=== PATIENT | male | born 1930 | race Caucasian/White ===

== ENCOUNTER 2016-12-24 14:58 | Inpatient (IN) | payer OTHER ==
[~2016-12-24] VITALS: Ht 167.6 cm; Wt 80.1 kg
[~2016-12-24 14:58] MED LIST: ACYC200C PO; DIATR MEGLU/DIATRIZOATE SOLN 120ML ONE; DOCU-138 PO; MECL-109 PO; TAMS0.4C31 PO
[2016-12-24] MEDS ORDERED: SODIUM CHLORIDE 0.9% 500 ML IV ONE (15:20)
[2016-12-24 15:51] LABS: HEMATOCRIT. 30.3 % (42.0-52.0); MEAN CORPUSCULAR HEMOGLOBIN 29.9 pg (28.0-32.0); MEAN CORPUSCULAR VOLUME 90.6 fL (80.0-94.0); MEAN PLATELET VOLUME 7.4 fl (7.4-10.4); PLATELET 158 x1000/uL (130-400); RED BLOOD CELL COUNT 3.34 mill/uL (4.7-6.1); RED CELL DISTRIBUTION WIDTH 14.8 % (11.6-14.6)
[2016-12-24 15:54] LABS: CHLORIDE 99 mEq/L (98-107); INDEX HEMOLYSI 1 (1-3); INDEX ICTERIC 1 (1-4); INDEX LIPEMIC 1 (1-3)
[2016-12-24 15:58] LABS: DIFFERENTIAL COMMENT 1; INR 1.2; PARTIAL THROMBOPLASTIN TIME 26.4 sec (24.0-34.0); PROTHROMBIN TIME 12.4 sec
[2016-12-24 16:02] LABS: ALANINE AMINOTRANSFERASE 19 IU/L (13-61); ANION GAP 13; CALCIUM 8.9 mg/dL (8.5-10.1); CARBON DIOXIDE 26 mEq/L (21-32); LIPASE 59 IU/L (73-393); UREA NITROGEN BLOOD 21 mg/dL (7-21); eGFR > 60 mL/min (>60)
[2016-12-24 16:29] LABS: PLATELET ESTIMATE NORMAL
[2016-12-24] MEDS ORDERED: ACETAMINOPHEN 650MG SUPP PR ONE (17:00)
[2016-12-24 17:23] LABS: CREATINE KINASE 172 IU/L (39-308); CREATINE KINASE MB FRACTION 2.7 ng/mL (0.5-3.6); INDEX HEMOLYSI 1 (1-3); NT PRO B-TYPE NATRIURETIC PEP 3673 pg/mL (5-125); TROPONIN I < 0.02 ng/mL (0.00-0.04)
[2016-12-24] MEDS ORDERED: PIPERACILLIN/TAZ 3.375G PREMIX 50 ML IV ONE (17:45)
[2016-12-24 18:04] LABS: CLARITY URINE CLEAR (CLEAR); COLOR URINE YELLOW (YELLOW); GLUCOSE URINE NEGATIVE (NEGATIVE); KETONES URINE NEGATIVE (NEGATIVE); LEUKOCYTE ESTERASE URINE NEGATIVE (NEGATIVE); NITRITE URINE NEGATIVE (NEGATIVE); OCCULT BLOOD URINE NEGATIVE (NEGATIVE); PROTEIN URINE 2+ (NEGATIVE); SPECIFIC GRAVITY URINE 1.023 (1.005-1.030)
[2016-12-24 18:36] LABS: BACTERIA URINE 1+; RBC URINE NONE SEEN /hpf (0-2); SQUAMOUS EPITHELIAL CELL URINE RARE /lpf (RARE/1+); WBC URINE 0-2 /hpf (0-2)
[2016-12-24 20:00] VITALS: BP 110/78
[2016-12-24 20:45] VITALS: BP 110/78
[2016-12-24] MEDS ORDERED: LOVA40TA73 PO (21:10)
[2016-12-24] MEDS ORDERED: LORA10TA7 PO (21:10)
[2016-12-24] MEDS ORDERED: FERR-63 PO (21:10)
[2016-12-24] MEDS ORDERED: ALBU18HF2 IH (21:10)
[2016-12-24] MEDS ORDERED: IPRA12.94 INH (21:10)
[2016-12-24] MEDS ORDERED: IBUP-1510 PO (21:10)
[2016-12-24] MEDS ORDERED: DOCU-138 PO (21:10)
[2016-12-24] MEDS ORDERED: METOPROLOL TARTRATE 50MG TABLET PO NR (22:45)
[2016-12-24] MEDS ORDERED: IPRATROPIUM/ALBUTEROL 0.5-3(2.5)MG/3ML NEB HHN PRN (22:45)
[2016-12-24] MEDS: DEXT 5%/0.9% NACL 1,000 ML IV SCH (23:18)
[2016-12-24 23:48] LABS: BG BASE EXCESS -2.4 mmol/L (-2.0-2.0); BG CARBOXYHEMOGLOBIN 0.3 % (0.5-1.5); BG FRACTION INSPIRED OXYGEN 36; BG HCO3 ACT 19.7 mmol/L (22.0-26.0); BG METHEMOGLOBIN 0.3 % (0.0-1.5); BG OXYHEMOGLOBIN 95.4 % (94.0-97.0); BG PCO2 26.2 mmHg (35.0-45.0); BG PH 7.495 (7.350-7.450); BG PO2 78.6 mmHg (75.0-100.0); BG SAMPLE SITE LEFT RADIAL; BG TOTAL HEMOGLOBIN 10.7 g/dL (12.0-18.0); BG VENT MODE NASAL CANNULA
[2016-12-25] VITALS: BP 107/74
[2016-12-25] MEDS: PIPERACILLIN/TAZ 3.375G PREMIX 50 ML IV SCH ×3 (01:11→17:06)
[2016-12-25 04:00] VITALS: BP 100/62
[2016-12-25 06:02] LABS: HEMATOCRIT. 28.7 % (42.0-52.0); HEMOGLOBIN. 9.3 g/dL (14.0-18.0); MEAN CORPUSCULAR HEMOGLOBIN 29.1 pg (28.0-32.0); MEAN CORPUSCULAR HGB CONC 32.3 g/dL (31.0-37.0); MEAN CORPUSCULAR VOLUME 90.3 fL (80.0-94.0); MEAN PLATELET VOLUME 7.9 fl (7.4-10.4); PLATELET 160 x1000/uL (130-400); RED BLOOD CELL COUNT 3.18 mill/uL (4.7-6.1); RED CELL DISTRIBUTION WIDTH 14.9 % (11.6-14.6); WHITE BLOOD COUNT 24.8 x1000/uL (4.5-11.0)
[2016-12-25 06:12] LABS: DIFFERENTIAL COMMENT 1
[2016-12-25 07:01] LABS: PLATELET ESTIMATE NORMAL
[2016-12-25 07:23] LABS: ALANINE AMINOTRANSFERASE 24 IU/L (13-61); ALBUMIN 2.6 g/dL (3.4-5.0); ANION GAP 13; CALCIUM 8.3 mg/dL (8.5-10.1); CARBON DIOXIDE 26 mEq/L (21-32); CHLORIDE 99 mEq/L (98-107); INDEX HEMOLYSI 1 (1-3); INDEX ICTERIC 1 (1-4); INDEX LIPEMIC 1 (1-3); UREA NITROGEN BLOOD 18 mg/dL (7-21); eGFR > 60 mL/min (>60)
[2016-12-25 08:00] VITALS: BP 97/65
[2016-12-25] MEDS: METOPROLOL TARTRATE 50MG TABLET PO SCH ×2 (09:00→21:00)
[2016-12-25] MEDS: PANTOPRAZOLE SODIUM 40 MG/VIAL IV SCH (09:29)
[2016-12-25 12:00] VITALS: BP 97/63
[2016-12-25] MEDS ORDERED: VANCOMYCIN 1500MG in DEXTROSE 5% WATER 250ML IV NR (15:00)
[2016-12-25] MEDS: DEXT 5%/0.9% NACL 1,000 ML IV SCH (15:29)
[2016-12-25 16:00] VITALS: BP 98/66
[2016-12-25 20:00] VITALS: BP 92/58
[2016-12-26] VITALS (44 sets, daily range): BP systolic 87–157; BP diastolic 55–88
[2016-12-26] MEDS ORDERED: SODIUM CHLORIDE 0.9% 250 ML IV ONE (01:00)
[2016-12-26] MEDS ORDERED: NON FORMULARY PATIENT HOME MED EA XX SCH (01:00)
[2016-12-26] MEDS: PIPERACILLIN/TAZ 3.375G PREMIX 50 ML IV SCH ×3 (02:10→19:22)
[2016-12-26] MEDS ORDERED: NOREPINEPHRINE 8 MG in DEXT 5% WATER 242 ML IV PRN (03:45)
[2016-12-26 07:51] LABS: HEMATOCRIT. 26.5 % (42.0-52.0); HEMOGLOBIN. 8.5 g/dL (14.0-18.0); MEAN CORPUSCULAR HEMOGLOBIN 28.8 pg (28.0-32.0); MEAN CORPUSCULAR HGB CONC 32.3 g/dL (31.0-37.0); MEAN CORPUSCULAR VOLUME 89.1 fL (80.0-94.0); MEAN PLATELET VOLUME 7.4 fl (7.4-10.4); PLATELET 133 x1000/uL (130-400); RED BLOOD CELL COUNT 2.97 mill/uL (4.7-6.1); WHITE BLOOD COUNT 22.1 x1000/uL (4.5-11.0)
[2016-12-26 07:53] LABS: DIFFERENTIAL COMMENT 1
[2016-12-26 07:58] LABS: CHLORIDE 105 mEq/L (98-107); INDEX HEMOLYSI 1 (1-3); INDEX ICTERIC 1 (1-4); INDEX LIPEMIC 1 (1-3)
[2016-12-26 08:03] LABS: ANION GAP 10; CALCIUM 8.1 mg/dL (8.5-10.1); CARBON DIOXIDE 26 mEq/L (21-32); UREA NITROGEN BLOOD 23 mg/dL (7-21); eGFR > 60 mL/min (>60)
[2016-12-26] MEDS: METOPROLOL TARTRATE 50MG TABLET PO SCH ×2 (09:00→21:00)
[2016-12-26 09:01] LABS: PLATELET ESTIMATE NORMAL
[2016-12-26] MEDS: PANTOPRAZOLE SODIUM 40 MG/VIAL IV SCH (09:57)
[2016-12-26] MEDS: VANCOMYCIN 1 G PREMIX 200 ML IV SCH (09:58)
[2016-12-26] MEDS: DEXT 5%/0.9% NACL 1,000 ML IV SCH (10:31)
[2016-12-26] MEDS ORDERED: POTASSIUM CHLORIDE 20MEQ TABLET SR PO NR (12:15)
[2016-12-26] MEDS: ACETAMINOPHEN 325MG TABLET PO PRN (17:32)
[2016-12-26] MEDS ORDERED: DIPHENHYDRAMINE 50MG CAPSULE PO PRN (22:15)
[2016-12-27] VITALS (44 sets, daily range): BP systolic 90–140; BP diastolic 62–93
[2016-12-27] MEDS: PIPERACILLIN/TAZ 3.375G PREMIX 50 ML IV SCH ×3 (01:54→17:28)
[2016-12-27] MEDS: VANCOMYCIN 1 G PREMIX 200 ML IV SCH (03:50)
[2016-12-27 05:03] LABS: HEMATOCRIT. 25.6 % (42.0-52.0); HEMOGLOBIN. 8.6 g/dL (14.0-18.0); MEAN CORPUSCULAR HGB CONC 33.4 g/dL (31.0-37.0); MEAN CORPUSCULAR VOLUME 89.6 fL (80.0-94.0); MEAN PLATELET VOLUME 7.9 fl (7.4-10.4); PLATELET 133 x1000/uL (130-400); RED BLOOD CELL COUNT 2.86 mill/uL (4.7-6.1); RED CELL DISTRIBUTION WIDTH 15.1 % (11.6-14.6); WHITE BLOOD COUNT 20.5 x1000/uL (4.5-11.0)
[2016-12-27 05:06] LABS: DIFFERENTIAL COMMENT 1
[2016-12-27 05:12] LABS: ALANINE AMINOTRANSFERASE 31 IU/L (13-61); ALBUMIN 2.2 g/dL (3.4-5.0); ANION GAP 13; CALCIUM 8.1 mg/dL (8.5-10.1); CARBON DIOXIDE 25 mEq/L (21-32); CHLORIDE 104 mEq/L (98-107); INDEX HEMOLYSI 1 (1-3); INDEX ICTERIC 1 (1-4); INDEX LIPEMIC 1 (1-3); MAGNESIUM 1.7 mg/dL (1.8-2.4); UREA NITROGEN BLOOD 15 mg/dL (7-21); eGFR > 60 mL/min (>60)
[2016-12-27 07:41] LABS: PLATELET ESTIMATE NORMAL
[2016-12-27] MEDS: METOPROLOL TARTRATE 50MG TABLET PO SCH ×2 (08:07→21:00)
[2016-12-27] MEDS: PANTOPRAZOLE SODIUM 40 MG/VIAL IV SCH (08:07)
[2016-12-27] MEDS: DEXT 5%/0.9% NACL 1,000 ML IV SCH ×2 (08:18→17:28)
[2016-12-27] MEDS ORDERED: LORAZEPAM 2MG/ML CPJ IM PRN (13:30)
[2016-12-27] MEDS ORDERED: POTASSIUM CHLORIDE 20 MEQ/PACKET PO NR (13:37)
[2016-12-27] MEDS ORDERED: DIPHENHYDRAMINE 50MG/ML VIAL IV PRN (13:45)
[2016-12-27] MEDS: FUROSEMIDE 40MG/4ML VIAL IVP SCH (14:09)
[2016-12-27] MEDS ORDERED: IPRATROPIUM/ALBUTEROL 0.5-3(2.5)MG/3ML NEB HHN PRN (14:15)
[2016-12-27] MEDS: IPRATROPIUM/ALBUTEROL 0.5-3(2.5)MG/3ML NEB HHN SCH ×2 (15:27→20:59)
[2016-12-28] VITALS (32 sets, daily range): BP systolic 93–128; BP diastolic 61–86
[2016-12-28] MEDS: IPRATROPIUM/ALBUTEROL 0.5-3(2.5)MG/3ML NEB HHN SCH ×6 (00:40→23:57)
[2016-12-28 04:33] LABS: HEMATOCRIT. 26.4 % (42.0-52.0); HEMOGLOBIN. 8.9 g/dL (14.0-18.0); MEAN CORPUSCULAR HEMOGLOBIN 30.2 pg (28.0-32.0); MEAN CORPUSCULAR HGB CONC 33.7 g/dL (31.0-37.0); MEAN CORPUSCULAR VOLUME 89.5 fL (80.0-94.0); PLATELET 166 x1000/uL (130-400); RED BLOOD CELL COUNT 2.94 mill/uL (4.7-6.1); RED CELL DISTRIBUTION WIDTH 14.8 % (11.6-14.6); WHITE BLOOD COUNT 17.3 x1000/uL (4.5-11.0)
[2016-12-28 04:47] LABS: DIFFERENTIAL COMMENT 1
[2016-12-28 04:49] LABS: ALANINE AMINOTRANSFERASE 68 IU/L (13-61); ALBUMIN 2.1 g/dL (3.4-5.0); ANION GAP 12; CARBON DIOXIDE 28 mEq/L (21-32); CHLORIDE 103 mEq/L (98-107); INDEX HEMOLYSI 1 (1-3); INDEX ICTERIC 1 (1-4); INDEX LIPEMIC 1 (1-3); UREA NITROGEN BLOOD 10 mg/dL (7-21); eGFR > 60 mL/min (>60)
[2016-12-28] MEDS: PANTOPRAZOLE SODIUM 40 MG/VIAL IV SCH (08:36)
[2016-12-28] MEDS: FUROSEMIDE 40MG/4ML VIAL IVP SCH (08:36)
[2016-12-28] MEDS: METOPROLOL TARTRATE 50MG TABLET PO SCH ×2 (08:37→20:59)
[2016-12-28] MEDS: PIPERACILLIN/TAZ 3.375G PREMIX 50 ML IV SCH ×2 (09:16→18:10)
[2016-12-28 10:47] LABS: PLATELET ESTIMATE NORMAL
[2016-12-28] MEDS ORDERED: POTASSIUM CHLORIDE 20MEQ TABLET SR PO NR (12:00)
[2016-12-28] MEDS ORDERED: POTASSIUM CHLORIDE INJ 40 MEQ in DEXT 5% WATER 250 ML IV SCH (13:00)
[2016-12-28] MEDS ORDERED: POTASSIUM CHLORIDE 20 MEQ/PACKET PO NR (13:49)
[2016-12-28] MEDS ORDERED: LORAZEPAM 2MG/ML CPJ IV PRN (14:00)
[2016-12-28] MEDS: VANCOMYCIN 1 G PREMIX 200 ML IV SCH (14:17)
[2016-12-28] MEDS ORDERED: VANCOMYCIN 1 G PREMIX 200 ML IV SCH (16:00)
[2016-12-28] MEDS: DEXT 5%/0.9% NACL 1,000 ML IV SCH (17:46)
[2016-12-28] MEDS: MICONAZOLE NITRATE 2% OINT 71GM TOP SCH (20:59)
[2016-12-29] VITALS: BP 109/77
[2016-12-29] MEDS: PIPERACILLIN/TAZ 3.375G PREMIX 50 ML IV SCH ×4 (01:13→23:20)
[2016-12-29] MEDS: IPRATROPIUM/ALBUTEROL 0.5-3(2.5)MG/3ML NEB HHN SCH ×5 (03:33→21:02)
[2016-12-29 04:00] VITALS: BP 105/73
[2016-12-29 05:12] LABS: HEMATOCRIT. 27.1 % (42.0-52.0); HEMOGLOBIN. 8.8 g/dL (14.0-18.0); MEAN CORPUSCULAR HGB CONC 32.5 g/dL (31.0-37.0); MEAN CORPUSCULAR VOLUME 89.2 fL (80.0-94.0); MEAN PLATELET VOLUME 7.7 fl (7.4-10.4); PLATELET 216 x1000/uL (130-400); RED BLOOD CELL COUNT 3.03 mill/uL (4.7-6.1); RED CELL DISTRIBUTION WIDTH 15.1 % (11.6-14.6); WHITE BLOOD COUNT 19.5 x1000/uL (4.5-11.0)
[2016-12-29 05:38] LABS: ALANINE AMINOTRANSFERASE 58 IU/L (13-61); ALBUMIN 2.2 g/dL (3.4-5.0); ANION GAP 14; CALCIUM 8.3 mg/dL (8.5-10.1); CARBON DIOXIDE 29 mEq/L (21-32); CHLORIDE 100 mEq/L (98-107); INDEX HEMOLYSI 1 (1-3); INDEX ICTERIC 1 (1-4); INDEX LIPEMIC 1 (1-3); UREA NITROGEN BLOOD 9 mg/dL (7-21); eGFR > 60 mL/min (>60)
[2016-12-29 06:30] LABS: DIFFERENTIAL COMMENT 1
[2016-12-29 08:00] VITALS: BP 111/80
[2016-12-29] MEDS: FUROSEMIDE 40MG/4ML VIAL IVP SCH (08:28)
[2016-12-29] MEDS: PANTOPRAZOLE SODIUM 40 MG/VIAL IV SCH (08:28)
[2016-12-29] MEDS: VANCOMYCIN 1 G PREMIX 200 ML IV SCH (08:28)
[2016-12-29] MEDS: METOPROLOL TARTRATE 50MG TABLET PO SCH ×2 (08:32→23:20)
[2016-12-29] MEDS: MICONAZOLE NITRATE 2% OINT 71GM TOP SCH ×2 (08:39→23:21)
[2016-12-29] MEDS: ACETAMINOPHEN 325MG TABLET PO PRN (10:48)
[2016-12-29 12:00] VITALS: BP_SYST 100; BP_SYST 110; BP_DIAS 75
[2016-12-29 14:29] LABS: PLATELET ESTIMATE NORMAL
[2016-12-29 15:51] VITALS: BP 103/63
[2016-12-29 20:00] VITALS: BP 115/73
[2016-12-29] MEDS: DEXT 5%/0.9% NACL 1,000 ML IV SCH (23:20)
[2016-12-30] VITALS: BP 98/63
[2016-12-30] MEDS: IPRATROPIUM/ALBUTEROL 0.5-3(2.5)MG/3ML NEB HHN SCH ×6 (00:22→20:00)
[2016-12-30] MEDS: VANCOMYCIN 1 G PREMIX 200 ML IV SCH ×2 (03:00→21:29)
[2016-12-30 04:00] VITALS: BP 115/78
[2016-12-30 05:35] LABS: HEMATOCRIT. 27.1 % (42.0-52.0); HEMOGLOBIN. 8.9 g/dL (14.0-18.0); MEAN CORPUSCULAR HEMOGLOBIN 29.3 pg (28.0-32.0); MEAN CORPUSCULAR HGB CONC 32.9 g/dL (31.0-37.0); MEAN CORPUSCULAR VOLUME 89.2 fL (80.0-94.0); MEAN PLATELET VOLUME 7.6 fl (7.4-10.4); PLATELET 249 x1000/uL (130-400); RED BLOOD CELL COUNT 3.04 mill/uL (4.7-6.1); RED CELL DISTRIBUTION WIDTH 15.1 % (11.6-14.6); WHITE BLOOD COUNT 16.3 x1000/uL (4.5-11.0)
[2016-12-30 05:54] LABS: ANION GAP 13; CALCIUM 8.5 mg/dL (8.5-10.1); CARBON DIOXIDE 31 mEq/L (21-32); CHLORIDE 98 mEq/L (98-107); INDEX HEMOLYSI 1 (1-3); INDEX ICTERIC 1 (1-4); INDEX LIPEMIC 1 (1-3); UREA NITROGEN BLOOD 11 mg/dL (7-21); eGFR > 60 mL/min (>60)
[2016-12-30 07:11] LABS: DIFFERENTIAL COMMENT 1
[2016-12-30 08:00] VITALS: BP 117/81
[2016-12-30] MEDS: FAMOTIDINE 20MG/2ML VIAL IV SCH ×2 (08:54→21:29)
[2016-12-30] MEDS: METOPROLOL TARTRATE 50MG TABLET PO SCH ×2 (08:54→21:29)
[2016-12-30] MEDS: FUROSEMIDE 40MG/4ML VIAL IVP SCH (08:54)
[2016-12-30] MEDS: MICONAZOLE NITRATE 2% OINT 71GM TOP SCH ×2 (08:57→21:34)
[2016-12-30] MEDS: PIPERACILLIN/TAZ 3.375G PREMIX 50 ML IV SCH ×2 (09:03→17:11)
[2016-12-30 12:00] VITALS: BP 108/77
[2016-12-30 16:00] VITALS: BP 99/67
[2016-12-30 16:54] LABS: ANISOCYTOSIS 1+; PLATELET ESTIMATE NORMAL
[2016-12-30] MEDS: DEXT 5%/0.9% NACL 1,000 ML IV SCH (17:10)
[2016-12-30 20:00] VITALS: BP 103/79
[2016-12-31] VITALS (7 sets, daily range): BP systolic 98–118; BP diastolic 60–84
[2016-12-31] MEDS: ACETAMINOPHEN 325MG TABLET PO PRN (02:08)
[2016-12-31] MEDS: PIPERACILLIN/TAZ 3.375G PREMIX 50 ML IV SCH ×2 (02:08→09:05)
[2016-12-31] MEDS: IPRATROPIUM/ALBUTEROL 0.5-3(2.5)MG/3ML NEB HHN SCH ×6 (04:00→21:39)
[2016-12-31] MEDS: METOPROLOL TARTRATE 50MG TABLET PO SCH ×2 (09:00→20:31)
[2016-12-31] MEDS: FUROSEMIDE 40MG/4ML VIAL IVP SCH (09:04)
[2016-12-31] MEDS: FAMOTIDINE 20MG/2ML VIAL IV SCH ×2 (09:04→20:31)
[2016-12-31] MEDS: MICONAZOLE NITRATE 2% OINT 71GM TOP SCH ×2 (09:04→20:32)
[2016-12-31 09:41] LABS: HEMATOCRIT. 29.8 % (42.0-52.0); HEMOGLOBIN. 9.8 g/dL (14.0-18.0); MEAN CORPUSCULAR HEMOGLOBIN 29.3 pg (28.0-32.0); MEAN CORPUSCULAR HGB CONC 32.8 g/dL (31.0-37.0); MEAN CORPUSCULAR VOLUME 89.2 fL (80.0-94.0); MEAN PLATELET VOLUME 7.4 fl (7.4-10.4); PLATELET 323 x1000/uL (130-400); RED BLOOD CELL COUNT 3.34 mill/uL (4.7-6.1)
[2016-12-31 09:42] LABS: DIFFERENTIAL COMMENT 1
[2016-12-31 10:07] LABS: ANION GAP 12; CALCIUM 8.6 mg/dL (8.5-10.1); CARBON DIOXIDE 32 mEq/L (21-32); CHLORIDE 95 mEq/L (98-107); INDEX HEMOLYSI 1 (1-3); INDEX ICTERIC 1 (1-4); INDEX LIPEMIC 1 (1-3); UREA NITROGEN BLOOD 12 mg/dL (7-21); eGFR > 60 mL/min (>60)
[2016-12-31 10:34] LABS: ANISOCYTOSIS 1+; PLATELET ESTIMATE NORMAL
[2016-12-31] MEDS: METRONIDAZOLE 500MG TABLET PO SCH ×2 (13:38→21:37)
[2016-12-31 15:03] LABS: HEMATOCRIT. 31.4 % (42.0-52.0); HEMOGLOBIN. 10.3 g/dL (14.0-18.0); MEAN CORPUSCULAR HEMOGLOBIN 29.2 pg (28.0-32.0); MEAN CORPUSCULAR HGB CONC 32.8 g/dL (31.0-37.0); MEAN CORPUSCULAR VOLUME 88.9 fL (80.0-94.0); MEAN PLATELET VOLUME 7.3 fl (7.4-10.4); PLATELET 312 x1000/uL (130-400); RED BLOOD CELL COUNT 3.53 mill/uL (4.7-6.1); RED CELL DISTRIBUTION WIDTH 14.8 % (11.6-14.6)
[2016-12-31] MEDS: CEFEPIME 2,000 MG in DEXT 5% WATER 100 ML IV SCH (15:11)
[2016-12-31 15:19] LABS: DIFFERENTIAL COMMENT 1
[2016-12-31] MEDS: DEXT 5%/0.9% NACL 1,000 ML IV SCH (17:30)
[2016-12-31 17:41] LABS: PLATELET ESTIMATE NORMAL
[2016-12-31 17:43] LABS: ANISOCYTOSIS 1+
[2016-12-31 17:44] LABS: GIANT PLATELETS FEW
[2016-12-31 17:45] LABS: HYPOCHROMASIA 1+
[2017-01-01] VITALS: BP 104/76
[2017-01-01] MEDS: IPRATROPIUM/ALBUTEROL 0.5-3(2.5)MG/3ML NEB HHN SCH ×3 (00:51→09:33)
[2017-01-01] MEDS: CEFEPIME 2,000 MG in DEXT 5% WATER 100 ML IV SCH (02:53)
[2017-01-01 04:00] VITALS: BP 115/73
[2017-01-01] MEDS: METRONIDAZOLE 500MG TABLET PO SCH ×3 (05:43→15:01)
[2017-01-01 05:59] LABS: CHLORIDE 95 mEq/L (98-107); INDEX HEMOLYSI 1 (1-3); INDEX ICTERIC 1 (1-4); INDEX LIPEMIC 1 (1-3)
[2017-01-01 06:15] LABS: ANION GAP 17; CALCIUM 8.5 mg/dL (8.5-10.1); CARBON DIOXIDE 28 mEq/L (21-32); UREA NITROGEN BLOOD 14 mg/dL (7-21); eGFR > 60 mL/min (>60)
[2017-01-01 07:33] LABS: HEMATOCRIT. 29.6 % (42.0-52.0); HEMOGLOBIN. 9.8 g/dL (14.0-18.0); MEAN CORPUSCULAR HEMOGLOBIN 29.3 pg (28.0-32.0); MEAN CORPUSCULAR HGB CONC 33.2 g/dL (31.0-37.0); MEAN CORPUSCULAR VOLUME 88.2 fL (80.0-94.0); MEAN PLATELET VOLUME 7.4 fl (7.4-10.4); PLATELET 331 x1000/uL (130-400); RED BLOOD CELL COUNT 3.35 mill/uL (4.7-6.1); RED CELL DISTRIBUTION WIDTH 14.9 % (11.6-14.6); WHITE BLOOD COUNT 20.6 x1000/uL (4.5-11.0)
[2017-01-01 08:00] VITALS: BP 101/66
[2017-01-01 08:21] LABS: DIFFERENTIAL COMMENT 1
[2017-01-01] MEDS: METOPROLOL TARTRATE 50MG TABLET PO SCH (09:00)
[2017-01-01] MEDS: FAMOTIDINE 20MG/2ML VIAL IV SCH (09:43)
[2017-01-01] MEDS: MICONAZOLE NITRATE 2% OINT 71GM TOP SCH (09:43)
[2017-01-01] MEDS ORDERED: POTASSIUM CHLORIDE 20MEQ TABLET SR PO SCH (11:00)
[2017-01-01] MEDS: FUROSEMIDE 40MG/4ML VIAL IVP SCH (11:04)
[2017-01-01 12:00] VITALS: BP 127/66
[2017-01-01] MEDS ORDERED: POTASSIUM CHLORIDE INJ 40 MEQ in DEXT 5% WATER 250 ML IV SCH (12:00)
[2017-01-01 16:00] VITALS: BP 114/81
[2017-01-01 16:23] LABS: PLATELET ESTIMATE NORMAL
== END 2016-12-31 16:30 | DRG 871 ==
LOC: ER 14:59 → OBSVTOIN 18:00 → INTOOBSV 18:00 → 5WST 18:00 → MICUSO 12-26 02:50 → 7WST 12-28 21:55
PROVIDERS: ADMIT Internal Medicine; ATTEND Internal Medicine
PROC: 02HV33Z Insertion of Infusion Device into Superior Vena Cava, Percutaneous Approach (ICD-10-PCS; principal; 2016-12-31)
PROC: B548ZZA Ultrasonography of Superior Vena Cava, Guidance (ICD-10-PCS; 2016-12-31)
DX: A41.9 Sepsis, unspecified organism (principal); I50.43 Acute on chronic combined systolic (congestive) and diastolic (congestive) heart failure; J18.9 Pneumonia, unspecified organism; K61.0 Anal abscess; L03.317 Cellulitis of buttock; I11.0 Hypertensive heart disease with heart failure; I25.10 Atherosclerotic heart disease of native coronary artery without angina pectoris; E78.00 Pure hypercholesterolemia, unspecified; D64.9 Anemia, unspecified; E78.5 Hyperlipidemia, unspecified; K62.89 Other specified diseases of anus and rectum; M79.3 Panniculitis, unspecified; E87.6 Hypokalemia; F03.90 Unspecified dementia, unspecified severity, without behavioral disturbance, psychotic disturbance, mood disturbance, and anxiety; Z87.891 Personal history of nicotine dependence; Z95.2 Presence of prosthetic heart valve; Z88.6 Allergy status to analgesic agent; Z79.899 Other long term (current) drug therapy
CPT/HCPCS: 36415; 36569; 36600; 71010; 72192; 73700; 74176; 76937; 80048; 80053; 80202; 81001; 82270; 82375; 82550; 82553; 82805; 83605; 83690; 83735; 83880; 84145; 84443; 84484; 85025; 85610; 85730; 87040; 87086; 87493; 93005; 93306; 93970; 94640; 94664; 96361; 96365; 97163; 99291; A6261; C1725; C9113; J0692; J1940; J2060; J2543; J3370; J3480; J3490; J7040; J7042; J7050; J7060; J7620; Q0163; Q9963

== ENCOUNTER 2016-12-31 18:00 | Inpatient (IN) | payer OTHER ==
[~2016-12-31] VITALS: Ht 167.6 cm; Wt 76.7 kg
[~2016-12-31 18:00] MED LIST changes: -ACYC200C PO; +ALBU18HF2 IH; -DIATR MEGLU/DIATRIZOATE SOLN 120ML ONE; +FERR-63 PO; +IBUP-1510 PO; +IPRA12.94 INH; +LORA10TA7 PO; +LOVA40TA73 PO; -MECL-109 PO; -TAMS0.4C31 PO
[2017-01-01] VITALS: BP 117/75
[2017-01-01 16:00] VITALS: BP 141/81
[2017-01-01] MEDS ORDERED: DIPHENHYDRAMINE 50MG/ML VIAL IV PRN (16:45)
[2017-01-01] MEDS ORDERED: LORAZEPAM 2MG/ML CPJ IV PRN (16:45)
[2017-01-01] MEDS ORDERED: PIPERACILLIN/TAZ 3.375G PREMIX 50 ML IV SCH (16:45)
[2017-01-01] MEDS ORDERED: ACETAMINOPHEN 325MG TABLET PO PRN (16:45)
[2017-01-01 19:40] VITALS: BP 141/81
[2017-01-01 20:00] VITALS: BP 137/94
[2017-01-01 20:17] LABS: HEMOGLOBIN. 10.1 g/dL (14.0-18.0); MEAN CORPUSCULAR HEMOGLOBIN 29.2 pg (28.0-32.0); MEAN CORPUSCULAR HGB CONC 32.6 g/dL (31.0-37.0); MEAN CORPUSCULAR VOLUME 89.8 fL (80.0-94.0); MEAN PLATELET VOLUME 7.2 fl (7.4-10.4); PLATELET 324 x1000/uL (130-400); RED BLOOD CELL COUNT 3.45 mill/uL (4.7-6.1); WHITE BLOOD COUNT 20.9 x1000/uL (4.5-11.0)
[2017-01-01 20:19] LABS: DIFFERENTIAL COMMENT 1
[2017-01-01 20:22] LABS: CHLORIDE 97 mEq/L (98-107); INDEX HEMOLYSI 2 (1-3); INDEX ICTERIC 1 (1-4); INDEX LIPEMIC 1 (1-3)
[2017-01-01 20:27] LABS: ANION GAP 13; CALCIUM 8.9 mg/dL (8.5-10.1); CARBON DIOXIDE 31 mEq/L (21-32); UREA NITROGEN BLOOD 15 mg/dL (7-21); eGFR > 60 mL/min (>60)
[2017-01-01 20:37] LABS: PLATELET ESTIMATE NORMAL
[2017-01-01] MEDS ORDERED: DIPHENHYDRAMINE 50MG CAPSULE PO PRN (21:00)
[2017-01-01] MEDS: CEFEPIME 2,000 MG in DEXT 5% WATER 100 ML IV SCH (21:26)
[2017-01-01] MEDS: FAMOTIDINE 20MG/2ML VIAL IV SCH (21:26)
[2017-01-01] MEDS: DEXT 5%/0.9% NACL 1,000 ML IV SCH (21:26)
[2017-01-01] MEDS: METOPROLOL TARTRATE 50MG TABLET PO SCH (21:27)
[2017-01-01] MEDS: METRONIDAZOLE 500MG TABLET PO SCH (21:27)
[2017-01-01] MEDS: MICONAZOLE NITRATE 2% OINT 71GM TOP SCH (21:28)
[2017-01-01] MEDS ORDERED: METRONIDAZOLE 50MG/ML 1ML ORAL SYR(NEO) PO SCH (22:00)
[2017-01-01] MEDS ORDERED: VANCOMYCIN 1500MG in DEXTROSE 5% WATER 250ML IV NR (22:30)
[2017-01-02] MEDS: IPRATROPIUM/ALBUTEROL 0.5-3(2.5)MG/3ML NEB HHN SCH ×7 (00:14→23:43)
[2017-01-02 04:00] VITALS: BP 133/75
[2017-01-02] MEDS: METRONIDAZOLE 500MG TABLET PO SCH ×4 (06:45→20:57)
[2017-01-02 06:50] LABS: HEMATOCRIT 30.9 % (42.0-52.0); HEMOGLOBIN 10.2 g/dL (14.0-18.0); MEAN CORPUSCULAR HEMOGLOBIN 29.2 pg (28.0-32.0); MEAN CORPUSCULAR HGB CONC 32.9 g/dL (31.0-37.0); MEAN CORPUSCULAR VOLUME 88.9 fL (80.0-94.0); PLATELET 348 x1000/uL (130-400); RED BLOOD CELL COUNT 3.47 mill/uL (4.7-6.1); RED CELL DISTRIBUTION WIDTH 15.3 % (11.6-14.6); WHITE BLOOD COUNT 21.2 x1000/uL (4.5-11.0)
[2017-01-02 07:24] LABS: ANION GAP 13; CARBON DIOXIDE 30 mEq/L (21-32); CHLORIDE 97 mEq/L (98-107); INDEX HEMOLYSI 1 (1-3); INDEX ICTERIC 1 (1-4); INDEX LIPEMIC 1 (1-3); MAGNESIUM 1.8 mg/dL (1.8-2.4); PHOSPHORUS 2.2 mg/dL (2.5-4.9); UREA NITROGEN BLOOD 15 mg/dL (7-21); eGFR > 60 mL/min (>60)
[2017-01-02 08:00] VITALS: BP 131/67
[2017-01-02] MEDS: MICONAZOLE NITRATE 2% OINT 71GM TOP SCH ×2 (09:00→20:58)
[2017-01-02] MEDS: CEFEPIME 2,000 MG in DEXT 5% WATER 100 ML IV SCH ×2 (09:51→20:57)
[2017-01-02] MEDS: PANTOPRAZOLE SODIUM 40 MG/VIAL IV SCH (09:51)
[2017-01-02] MEDS: FUROSEMIDE 40MG/4ML VIAL IVP SCH (09:51)
[2017-01-02] MEDS: FAMOTIDINE 20MG/2ML VIAL IV SCH ×2 (09:51→20:56)
[2017-01-02] MEDS: METOPROLOL TARTRATE 50MG TABLET PO SCH ×2 (09:52→20:57)
[2017-01-02 12:00] VITALS: BP 124/63
[2017-01-02 16:00] VITALS: BP 110/58
[2017-01-02] MEDS ORDERED: VANCOMYCIN 1 G PREMIX 200 ML IV SCH (16:00)
[2017-01-02] MEDS: VANCOMYCIN 1250MG in DEXTROSE 5% WATER 250ML IV SCH (17:49)
[2017-01-02] MEDS: ENOXAPARIN 40MG/0.4ML SYR SUBCUT SCH (17:55)
[2017-01-02 20:00] VITALS: BP 108/64
[2017-01-02] MEDS: DEXT 5%/0.9% NACL 1,000 ML IV SCH (20:58)
[2017-01-02] MEDS ORDERED: MUPIROCIN 2% OINT 22GM TOP SCH (22:00)
[2017-01-03] VITALS: BP 123/82
[2017-01-03 04:00] VITALS: BP 129/79
[2017-01-03] MEDS: IPRATROPIUM/ALBUTEROL 0.5-3(2.5)MG/3ML NEB HHN SCH ×5 (04:15→21:08)
[2017-01-03] MEDS: METRONIDAZOLE 500MG TABLET PO SCH ×3 (06:26→21:15)
[2017-01-03 07:07] LABS: HEMATOCRIT. 28.1 % (42.0-52.0); HEMOGLOBIN. 9.4 g/dL (14.0-18.0); MEAN CORPUSCULAR HEMOGLOBIN 29.4 pg (28.0-32.0); MEAN CORPUSCULAR HGB CONC 33.6 g/dL (31.0-37.0); MEAN CORPUSCULAR VOLUME 87.5 fL (80.0-94.0); MEAN PLATELET VOLUME 7.5 fl (7.4-10.4); PLATELET 346 x1000/uL (130-400); RED BLOOD CELL COUNT 3.21 mill/uL (4.7-6.1); RED CELL DISTRIBUTION WIDTH 15.1 % (11.6-14.6); WHITE BLOOD COUNT 17.1 x1000/uL (4.5-11.0)
[2017-01-03 07:11] LABS: DIFFERENTIAL COMMENT 1
[2017-01-03 07:35] LABS: ANION GAP 14; CALCIUM 8.8 mg/dL (8.5-10.1); CARBON DIOXIDE 28 mEq/L (21-32); CHLORIDE 98 mEq/L (98-107); INDEX HEMOLYSI 1 (1-3); INDEX ICTERIC 1 (1-4); INDEX LIPEMIC 1 (1-3); MAGNESIUM 1.7 mg/dL (1.8-2.4); PHOSPHORUS 2.7 mg/dL (2.5-4.9); UREA NITROGEN BLOOD 15 mg/dL (7-21)
[2017-01-03 07:36] LABS: eGFR > 60 mL/min (>60)
[2017-01-03 08:00] VITALS: BP 127/77
[2017-01-03] MEDS: METOPROLOL TARTRATE 50MG TABLET PO SCH ×2 (08:38→21:15)
[2017-01-03] MEDS: FAMOTIDINE 20MG/2ML VIAL IV SCH ×2 (08:38→21:14)
[2017-01-03] MEDS: CEFEPIME 2,000 MG in DEXT 5% WATER 100 ML IV SCH ×2 (08:38→21:19)
[2017-01-03] MEDS: PANTOPRAZOLE SODIUM 40 MG/VIAL IV SCH (08:38)
[2017-01-03] MEDS: FUROSEMIDE 40MG/4ML VIAL IVP SCH (08:38)
[2017-01-03] MEDS: MICONAZOLE NITRATE 2% OINT 71GM TOP SCH ×2 (08:46→21:15)
[2017-01-03 12:00] VITALS: BP 104/62
[2017-01-03] MEDS ORDERED: POTASSIUM CHLORIDE 20MEQ TABLET SR PO NR (12:15)
[2017-01-03] MEDS: VANCOMYCIN 1250MG in DEXTROSE 5% WATER 250ML IV SCH (12:37)
[2017-01-03 14:50] LABS: PLATELET ESTIMATE NORMAL
[2017-01-03 16:00] VITALS: BP 114/68
[2017-01-03] MEDS: ENOXAPARIN 40MG/0.4ML SYR SUBCUT SCH (16:57)
[2017-01-03 20:00] VITALS: BP 113/68
[2017-01-03] MEDS: DEXT 5%/0.9% NACL 1,000 ML IV SCH (21:19)
[2017-01-04] VITALS: BP 123/88
[2017-01-04] MEDS: IPRATROPIUM/ALBUTEROL 0.5-3(2.5)MG/3ML NEB HHN SCH ×6 (00:39→20:24)
[2017-01-04 04:00] VITALS: BP 124/68
[2017-01-04 05:34] LABS: ANION GAP 14; CALCIUM 9.2 mg/dL (8.5-10.1); CARBON DIOXIDE 28 mEq/L (21-32); CHLORIDE 97 mEq/L (98-107); INDEX HEMOLYSI 1 (1-3); INDEX ICTERIC 1 (1-4); INDEX LIPEMIC 1 (1-3); MAGNESIUM 1.8 mg/dL (1.8-2.4); PHOSPHORUS 2.7 mg/dL (2.5-4.9); UREA NITROGEN BLOOD 17 mg/dL (7-21); VANCOMYCIN TROUGH 23.4 ug/mL (5.0-10.0); eGFR > 60 mL/min (>60)
[2017-01-04] MEDS: METRONIDAZOLE 500MG TABLET PO SCH ×3 (05:47→20:44)
[2017-01-04] MEDS ORDERED: LIDOCAINE HCL 1% 20ML VIAL (Pyxis) INJ INFIL NR (06:00)
[2017-01-04 06:11] LABS: BASOPHILS % 0.7 % (0.0-2.0); EOSINOPHILS % 0.8 % (0.0-5.0); HEMATOCRIT. 33.3 % (42.0-52.0); LYMPHOCYTES % 7.6 % (20.0-50.0); MEAN CORPUSCULAR HEMOGLOBIN 29.1 pg (28.0-32.0); MEAN CORPUSCULAR VOLUME 88.4 fL (80.0-94.0); MEAN PLATELET VOLUME 7.5 fl (7.4-10.4); MONOCYTES % 6.3 % (2.0-8.0); NEUTROPHILS % 84.6 % (40.0-76.0); PLATELET 377 x1000/uL (130-400); RED BLOOD CELL COUNT 3.77 mill/uL (4.7-6.1); RED CELL DISTRIBUTION WIDTH 14.7 % (11.6-14.6); WHITE BLOOD COUNT 15.8 x1000/uL (4.5-11.0)
[2017-01-04 08:00] VITALS: BP 108/71
[2017-01-04] MEDS: METOPROLOL TARTRATE 50MG TABLET PO SCH ×2 (09:00→20:38)
[2017-01-04] MEDS: CEFEPIME 2,000 MG in DEXT 5% WATER 100 ML IV SCH ×2 (09:18→20:41)
[2017-01-04] MEDS: FAMOTIDINE 20MG/2ML VIAL IV SCH ×2 (09:20→20:38)
[2017-01-04] MEDS: FUROSEMIDE 40MG/4ML VIAL IVP SCH (09:20)
[2017-01-04] MEDS: MICONAZOLE NITRATE 2% OINT 71GM TOP SCH ×2 (09:21→20:39)
[2017-01-04 12:00] VITALS: BP 91/66
[2017-01-04] MEDS: VANCOMYCIN 1250MG in DEXTROSE 5% WATER 250ML IV SCH (14:19)
[2017-01-04] MEDS: MUPIROCIN 2% OINT 22GM TOP SCH ×2 (15:18→20:39)
[2017-01-04 16:00] VITALS: BP 107/72
[2017-01-04] MEDS: ENOXAPARIN 40MG/0.4ML SYR SUBCUT SCH (16:17)
[2017-01-04] MEDS: DEXT 5%/0.9% NACL 1,000 ML IV SCH (19:00)
[2017-01-04 20:00] VITALS: BP 112/72
[2017-01-05] VITALS (7 sets, daily range): BP systolic 91–107; BP diastolic 52–71
[2017-01-05] MEDS: IPRATROPIUM/ALBUTEROL 0.5-3(2.5)MG/3ML NEB HHN SCH ×6 (00:42→21:15)
[2017-01-05] MEDS: MUPIROCIN 2% OINT 22GM TOP SCH ×2 (05:35→16:11)
[2017-01-05] MEDS: METRONIDAZOLE 500MG TABLET PO SCH ×2 (05:35→16:10)
[2017-01-05 05:47] LABS: ANION GAP 14; CALCIUM 9.5 mg/dL (8.5-10.1); CARBON DIOXIDE 29 mEq/L (21-32); CHLORIDE 95 mEq/L (98-107); INDEX HEMOLYSI 1 (1-3); INDEX ICTERIC 1 (1-4); INDEX LIPEMIC 1 (1-3); UREA NITROGEN BLOOD 18 mg/dL (7-21); eGFR > 60 mL/min (>60)
[2017-01-05 06:19] LABS: BASOPHILS % 0.8 % (0.0-2.0); EOSINOPHILS % 1.4 % (0.0-5.0); HEMATOCRIT. 33.8 % (42.0-52.0); HEMOGLOBIN. 10.9 g/dL (14.0-18.0); LYMPHOCYTES % 8.9 % (20.0-50.0); MEAN CORPUSCULAR HEMOGLOBIN 28.8 pg (28.0-32.0); MEAN CORPUSCULAR HGB CONC 32.2 g/dL (31.0-37.0); MEAN CORPUSCULAR VOLUME 89.6 fL (80.0-94.0); MEAN PLATELET VOLUME 7.6 fl (7.4-10.4); MONOCYTES % 8.9 % (2.0-8.0); PLATELET 380 x1000/uL (130-400); RED BLOOD CELL COUNT 3.78 mill/uL (4.7-6.1); RED CELL DISTRIBUTION WIDTH 14.9 % (11.6-14.6); WHITE BLOOD COUNT 13.5 x1000/uL (4.5-11.0)
[2017-01-05 07:07] LABS: INR 1.3; PROTHROMBIN TIME 13.3 sec
[2017-01-05] MEDS: FUROSEMIDE 40MG/4ML VIAL IVP SCH (08:36)
[2017-01-05] MEDS: FAMOTIDINE 20MG/2ML VIAL IV SCH (08:36)
[2017-01-05] MEDS: VANCOMYCIN 1250MG in DEXTROSE 5% WATER 250ML IV SCH (08:36)
[2017-01-05] MEDS: METOPROLOL TARTRATE 50MG TABLET PO SCH (08:38)
[2017-01-05] MEDS: MICONAZOLE NITRATE 2% OINT 71GM TOP SCH (09:51)
[2017-01-05] MEDS: CEFEPIME 2,000 MG in DEXT 5% WATER 100 ML IV SCH (10:50)
[2017-01-05 11:49] LABS: EOSINOPHILS % 1.4 % (0.0-5.0); HEMATOCRIT. 33.1 % (42.0-52.0); HEMOGLOBIN. 11.1 g/dL (14.0-18.0); LYMPHOCYTES % 8.5 % (20.0-50.0); MEAN CORPUSCULAR HEMOGLOBIN 29.2 pg (28.0-32.0); MEAN CORPUSCULAR HGB CONC 33.6 g/dL (31.0-37.0); MEAN CORPUSCULAR VOLUME 86.9 fL (80.0-94.0); MEAN PLATELET VOLUME 7.4 fl (7.4-10.4); MONOCYTES % 8.1 % (2.0-8.0); PLATELET 388 x1000/uL (130-400); RED BLOOD CELL COUNT 3.81 mill/uL (4.7-6.1); RED CELL DISTRIBUTION WIDTH 14.8 % (11.6-14.6); WHITE BLOOD COUNT 10.3 x1000/uL (4.5-11.0)
[2017-01-05] MEDS: ENOXAPARIN 40MG/0.4ML SYR SUBCUT SCH (19:05)
== END 2017-01-05 22:40 | DRG 871 ==
LOC: 7WST 18:00
PROVIDERS: ADMIT Internal Medicine; ATTEND Internal Medicine
DX: A41.9 Sepsis, unspecified organism (principal); J18.9 Pneumonia, unspecified organism; L03.317 Cellulitis of buttock; I50.30 Unspecified diastolic (congestive) heart failure; K61.1 Rectal abscess; L02.31 Cutaneous abscess of buttock; K62.89 Other specified diseases of anus and rectum; M79.3 Panniculitis, unspecified; E78.5 Hyperlipidemia, unspecified; I10 Essential (primary) hypertension; D64.9 Anemia, unspecified; I11.0 Hypertensive heart disease with heart failure; I25.10 Atherosclerotic heart disease of native coronary artery without angina pectoris; Z74.01 Bed confinement status; Z87.891 Personal history of nicotine dependence; Z95.2 Presence of prosthetic heart valve
CPT/HCPCS: 36415; 78806; 80048; 80202; 83735; 84100; 84145; 85025; 85027; 85610; 87070; 87205; 94640; 97162; 97166; 97530; A6261; A9547; C9113; J0692; J1650; J1940; J2060; J3370; J3490; J7042; J7060; J7620

== ENCOUNTER 2017-06-18 13:21 | Inpatient (IN) | payer OTHER ==
[~2017-06-18] VITALS: Ht 167.6 cm; Wt 73.9 kg
[~2017-06-18 13:21] MED LIST changes: +ATROV INH; -FERR-63 PO; -IBUP-1510 PO; -IPRA12.94 INH; -LORA10TA7 PO; -LOVA40TA73 PO
[2017-06-18] MEDS ORDERED: SODIUM CHLORIDE 0.9% 1,000 ML IV ONE (13:38)
[2017-06-18 14:09] LABS: HEMATOCRIT. 29.2 % (42.0-52.0); HEMOGLOBIN. 9.7 g/dL (14.0-18.0); MEAN CORPUSCULAR HEMOGLOBIN 29.7 pg (28.0-32.0); MEAN CORPUSCULAR VOLUME 89.6 fL (80.0-94.0); PLATELET 166 x1000/uL (130-400); RED BLOOD CELL COUNT 3.26 mill/uL (4.7-6.1); RED CELL DISTRIBUTION WIDTH 14.5 % (11.6-14.6)
[2017-06-18 14:14] LABS: INR 1.2; PROTHROMBIN TIME 12.7 sec (9.4-11.6)
[2017-06-18 14:24] LABS: CARBON DIOXIDE 28 mEq/L (21-32); CHLORIDE 96 mEq/L (98-107); TROPONIN I 0.04 ng/mL (0.00-0.04)
[2017-06-18 14:49] LABS: PLATELET ESTIMATE NORMAL
[2017-06-18] MEDS ORDERED: SODIUM CHLORIDE 0.9% 1000ML BAG (SEPSIS BOLUS) IV ONE (15:00)
[2017-06-18] MEDS ORDERED: PIPERACILLIN/TAZ 3.375G PREMIX 50 ML IV ONE (15:45)
[2017-06-18] MEDS ORDERED: VANCOMYCIN 1 G PREMIX 200 ML IV ONE (15:45)
[2017-06-18] MEDS ORDERED: ENOXAPARIN 80MG/0.8ML SYR SUBCUT ONE (17:00)
[2017-06-18 17:32] LABS: CLARITY URINE CLOUDY (CLEAR); COLOR URINE YELLOW (YELLOW); GLUCOSE URINE TRACE (NEGATIVE); KETONES URINE 1+ (NEGATIVE); LEUKOCYTE ESTERASE URINE 2+ (NEGATIVE); NITRITE URINE NEGATIVE (NEGATIVE); OCCULT BLOOD URINE 1+ (NEGATIVE); PH URINE 7.5 (4.5-8.0); PROTEIN URINE 1+ (NEGATIVE); SPECIFIC GRAVITY URINE 1.017 (1.005-1.030); UROBILINOGEN URINE 0.2 E.U./dL (0.2-1.0)
[2017-06-18] MEDS ORDERED: POTASSIUM CHLORIDE 20MEQ TABLET SR PO ONE (17:45)
[2017-06-18 20:10] VITALS: BP 134/93
[2017-06-18] MEDS ORDERED: DEXTROSE 50% WATER 50ML SYRINGE IV PRN (22:00)
[2017-06-18] MEDS ORDERED: MECL-109 PO (22:12)
[2017-06-18] MEDS ORDERED: ASPI-1159 PO (22:12)
[2017-06-18] MEDS ORDERED: LOVA40TA73 PO (22:12)
[2017-06-18] MEDS ORDERED: IBUP-2030 PO (22:12)
[2017-06-18] MEDS ORDERED: SENN8.6T21 PO (22:12)
[2017-06-18] MEDS ORDERED: FERR325T6 PO (22:12)
[2017-06-18] MEDS ORDERED: ACYC200C PO (22:12)
[2017-06-18] MEDS ORDERED: ACET160S PO (22:12)
[2017-06-18] MEDS ORDERED: TAMS-11 PO (22:12)
[2017-06-18] MEDS ORDERED: ACETAMINOPHEN 1000 MG PO SCH (22:15)
[2017-06-18] MEDS ORDERED: MECLIZINE 25MG TABLET PO SCH (22:15)
[2017-06-18] MEDS: SODIUM CHLORIDE 0.45% 1,000 ML IV SCH (22:36)
[2017-06-18] MEDS: METOPROLOL TARTRATE 50MG TABLET PO SCH (22:37)
[2017-06-18] MEDS: IBUPROFEN 800MG TABLET PO PRN (22:39)
[2017-06-18] MEDS: ACETAMINOPHEN 325MG TABLET PO PRN (22:40)
[2017-06-19] VITALS: BP 109/80
[2017-06-19] MEDS: PIPERACILLIN/TAZ 3.375G PREMIX 50 ML IV SCH ×4 (00:15→23:54)
[2017-06-19] MEDS ORDERED: MECLIZINE 25MG TABLET PO PRN (01:45)
[2017-06-19 04:00] VITALS: BP 134/81
[2017-06-19] MEDS: BLOOD SUGAR DIAGNOSTIC STRIP TEST SCH ×4 (05:03→21:00)
[2017-06-19 06:15] LABS: BASOPHILS % 0.2 % (0.0-2.0); HEMATOCRIT. 28.5 % (42.0-52.0); HEMOGLOBIN. 9.6 g/dL (14.0-18.0); LYMPHOCYTES % 9.6 % (20.0-50.0); MEAN CORPUSCULAR HEMOGLOBIN 30.1 pg (28.0-32.0); MEAN PLATELET VOLUME 8.3 fl (7.4-10.4); NEUTROPHILS % 81.2 % (40.0-76.0); PLATELET 151 x1000/uL (130-400); RED CELL DISTRIBUTION WIDTH 14.4 % (11.6-14.6)
[2017-06-19 07:38] LABS: CARBON DIOXIDE 29 mEq/L (21-32); CHLORIDE 99 mEq/L (98-107)
[2017-06-19 08:00] VITALS: BP 117/82
[2017-06-19] MEDS: FERROUS SULFATE 325MG TABLET PO SCH ×3 (08:10→17:59)
[2017-06-19] MEDS: INSULIN LISPRO 100 UNITS/ML SUBCUT SCH ×4 (08:10→21:00)
[2017-06-19] MEDS: TAMSULOSIN HCL 0.4MG SR CAPSULE PO SCH (09:00)
[2017-06-19] MEDS ORDERED: MEDICATION NOT ON FORMULARY EA (Lovastatin 40 MG) PO SCH (09:00)
[2017-06-19] MEDS: METOPROLOL TARTRATE 50MG TABLET PO SCH ×3 (09:00→21:16)
[2017-06-19] MEDS ORDERED: MEDICATION NOT ON FORMULARY EA (Ferrous Sulfate 325 MG) PO SCH (09:00)
[2017-06-19] MEDS: ASPIRIN 81MG EC TABLET PO SCH ×2 (09:00→13:12)
[2017-06-19] MEDS ORDERED: SENNOSIDES 8.6MG TABLET PO PRN (09:00)
[2017-06-19] MEDS: PANTOPRAZOLE SODIUM 40 MG/VIAL IV SCH (09:19)
[2017-06-19] MEDS: ONDANSETRON HCL 4MG/2ML VIAL IV PRN (09:28)
[2017-06-19] MEDS: SODIUM CHLORIDE 0.45% 1,000 ML IV SCH ×2 (11:20→23:54)
[2017-06-19 12:00] VITALS: BP 164/86
[2017-06-19] MEDS: IBUPROFEN 800MG TABLET PO PRN (13:11)
[2017-06-19 16:00] VITALS: BP 163/90
[2017-06-19 20:00] VITALS: BP 143/89
[2017-06-19] MEDS: DOCUSATE SODIUM 100MG CAPSULE PO SCH (21:16)
[2017-06-19] MEDS: ATORVASTATIN CALCIUM 20MG TABLET PO SCH (21:16)
[2017-06-20] VITALS: BP 137/90
[2017-06-20 04:00] VITALS: BP 137/83
[2017-06-20] MEDS: BLOOD SUGAR DIAGNOSTIC STRIP TEST SCH ×4 (07:51→21:00)
[2017-06-20] MEDS: INSULIN LISPRO 100 UNITS/ML SUBCUT SCH ×4 (07:51→21:00)
[2017-06-20 08:00] VITALS: BP 135/87
[2017-06-20] MEDS: FERROUS SULFATE 325MG TABLET PO SCH ×3 (08:10→18:10)
[2017-06-20] MEDS: PANTOPRAZOLE SODIUM 40 MG/VIAL IV SCH (10:00)
[2017-06-20] MEDS: TAMSULOSIN HCL 0.4MG SR CAPSULE PO SCH (10:01)
[2017-06-20] MEDS: PIPERACILLIN/TAZ 3.375G PREMIX 50 ML IV SCH (10:01)
[2017-06-20] MEDS: ASPIRIN 81MG EC TABLET PO SCH (10:01)
[2017-06-20] MEDS: METOPROLOL TARTRATE 50MG TABLET PO SCH ×2 (10:01→21:00)
[2017-06-20 12:00] VITALS: BP 142/95
[2017-06-20] MEDS ORDERED: FUROSEMIDE 40MG/4ML VIAL IVP NR (12:15)
[2017-06-20] MEDS: POTASSIUM CHLORIDE 20MEQ TABLET SR PO SCH (13:11)
[2017-06-20] MEDS: SODIUM CHLORIDE 0.9% 1,000 ML IV SCH (13:13)
[2017-06-20] MEDS ORDERED: LEVOFLOXACIN 500MG PREMIX 100 ML IV NR (13:30)
[2017-06-20 16:00] VITALS: BP 104/78
[2017-06-20 20:00] VITALS: BP 105/72
[2017-06-20] MEDS: ATORVASTATIN CALCIUM 20MG TABLET PO SCH (21:04)
[2017-06-20] MEDS: DOCUSATE SODIUM 100MG CAPSULE PO SCH (21:04)
[2017-06-20] MEDS: IPRATROPIUM/ALBUTEROL 0.5-3(2.5)MG/3ML NEB HHN PRN (21:46)
[2017-06-21] VITALS: BP 95/62
[2017-06-21 04:00] VITALS: BP 98/65
[2017-06-21] MEDS: BLOOD SUGAR DIAGNOSTIC STRIP TEST SCH ×4 (07:40→21:00)
[2017-06-21] MEDS: INSULIN LISPRO 100 UNITS/ML SUBCUT SCH ×4 (07:40→21:00)
[2017-06-21 08:00] VITALS: BP 80/57
[2017-06-21] MEDS: FERROUS SULFATE 325MG TABLET PO SCH ×3 (08:10→18:10)
[2017-06-21] MEDS: FAMOTIDINE 20MG/2ML VIAL IV SCH ×2 (09:00→10:19)
[2017-06-21] MEDS: TAMSULOSIN HCL 0.4MG SR CAPSULE PO SCH ×2 (09:00→10:19)
[2017-06-21] MEDS: POTASSIUM CHLORIDE 20MEQ TABLET SR PO SCH ×2 (09:00→10:19)
[2017-06-21] MEDS: METOPROLOL TARTRATE 50MG TABLET PO SCH ×2 (09:00→21:00)
[2017-06-21] MEDS: ASPIRIN 81MG EC TABLET PO SCH ×2 (09:00→10:19)
[2017-06-21 09:20] LABS: CARBON DIOXIDE 21 mEq/L (21-32); CHLORIDE 100 mEq/L (98-107)
[2017-06-21] MEDS ORDERED: SODIUM CHLORIDE 0.9% 250 ML IV ONE ×2 (10:00)
[2017-06-21] MEDS ORDERED: SODIUM CHLORIDE 0.9% 250 ML IV SCH (11:30)
[2017-06-21 12:00] VITALS: BP 103/70
[2017-06-21] MEDS: SODIUM CHLORIDE 0.9% 1,000 ML IV SCH (12:15)
[2017-06-21 13:22] LABS: BG BASE EXCESS -3.9 mmol/L (-2.0-2.0); BG CARBOXYHEMOGLOBIN 0.3 % (0.5-1.5); BG DEOXYHEMOGLOBIN 3.6 % (0.0-5.0); BG HCO3 ACT 20.6 mmol/L (22.0-26.0); BG METHEMOGLOBIN 0.2 % (0.0-1.5); BG OXYGEN SATURATION 96.4 % (92.0-98.5); BG OXYHEMOGLOBIN 95.9 % (94.0-97.0); BG PCO2 35.1 mmHg (35.0-45.0); BG PH 7.387 (7.350-7.450); BG PO2 90.4 mmHg (75.0-100.0); BG SAMPLE SITE RIGHT BRACHIAL; BG TOTAL HEMOGLOBIN 9.4 g/dL (12.0-18.0); BG VENT MODE NASAL CANNULA
[2017-06-21] MEDS ORDERED: ALBUTEROL (0.083%) 2.5MG/3ML NEB HHN NR (13:25)
[2017-06-21] MEDS ORDERED: POTASSIUM CHLORIDE 20MEQ TABLET SR PO NR (13:30)
[2017-06-21] MEDS: FUROSEMIDE 40MG/4ML VIAL IVP SCH (14:34)
[2017-06-21] MEDS: LEVOFLOXACIN 250MG PREMIX 50 ML IV SCH (14:34)
[2017-06-21 16:00] VITALS: BP 94/65
[2017-06-21] MEDS: PIPERACILLIN/TAZ 3.375G PREMIX 50 ML IV SCH ×2 (16:11→21:13)
[2017-06-21 16:34] LABS: HEMOGLOBIN. 9.1 g/dL (14.0-18.0); MEAN CORPUSCULAR HEMOGLOBIN 29.7 pg (28.0-32.0); MEAN PLATELET VOLUME 8.6 fl (7.4-10.4); PLATELET 156 x1000/uL (130-400); RED BLOOD CELL COUNT 3.08 mill/uL (4.7-6.1); RED CELL DISTRIBUTION WIDTH 14.7 % (11.6-14.6)
[2017-06-21 20:00] VITALS: BP 99/67
[2017-06-21] MEDS: ATORVASTATIN CALCIUM 20MG TABLET PO SCH (21:12)
[2017-06-21] MEDS: DOCUSATE SODIUM 100MG CAPSULE PO SCH (21:12)
[2017-06-21] MEDS: IPRATROPIUM/ALBUTEROL 0.5-3(2.5)MG/3ML NEB HHN PRN (21:26)
[2017-06-22 00:05] VITALS: BP 102/68
[2017-06-22] MEDS: IPRATROPIUM/ALBUTEROL 0.5-3(2.5)MG/3ML NEB HHN PRN ×3 (01:10→23:57)
[2017-06-22 04:00] VITALS: BP 95/64
[2017-06-22] MEDS: PIPERACILLIN/TAZ 3.375G PREMIX 50 ML IV SCH ×3 (05:33→22:55)
[2017-06-22] MEDS: SODIUM CHLORIDE 0.9% 1,000 ML IV SCH ×2 (05:33→22:52)
[2017-06-22] MEDS: BLOOD SUGAR DIAGNOSTIC STRIP TEST SCH ×4 (07:40→22:51)
[2017-06-22 08:00] VITALS: BP 122/80
[2017-06-22] MEDS: INSULIN LISPRO 100 UNITS/ML SUBCUT SCH ×4 (08:10→21:00)
[2017-06-22] MEDS: METOPROLOL TARTRATE 50MG TABLET PO SCH ×2 (09:00→21:00)
[2017-06-22] MEDS: FERROUS SULFATE 325MG TABLET PO SCH ×3 (09:57→18:07)
[2017-06-22] MEDS: ASPIRIN 81MG EC TABLET PO SCH (09:58)
[2017-06-22] MEDS: POTASSIUM CHLORIDE 20MEQ TABLET SR PO SCH (09:58)
[2017-06-22] MEDS: FAMOTIDINE 20MG/2ML VIAL IV SCH (09:58)
[2017-06-22] MEDS: FUROSEMIDE 40MG/4ML VIAL IVP SCH (09:59)
[2017-06-22] MEDS: TAMSULOSIN HCL 0.4MG SR CAPSULE PO SCH (09:59)
[2017-06-22 11:12] LABS: PLATELET ESTIMATE NORMAL
[2017-06-22 12:00] VITALS: BP 103/72
[2017-06-22 12:26] LABS: HEMATOCRIT. 27.6 % (42.0-52.0); HEMOGLOBIN. 9.1 g/dL (14.0-18.0); MEAN CORPUSCULAR HEMOGLOBIN 29.7 pg (28.0-32.0); MEAN CORPUSCULAR VOLUME 90.1 fL (80.0-94.0); MEAN PLATELET VOLUME 7.8 fl (7.4-10.4); PLATELET 168 x1000/uL (130-400); RED BLOOD CELL COUNT 3.06 mill/uL (4.7-6.1); RED CELL DISTRIBUTION WIDTH 14.5 % (11.6-14.6)
[2017-06-22 12:45] LABS: BG BASE EXCESS -6.7 mmol/L (-2.0-2.0); BG CARBOXYHEMOGLOBIN 0.3 % (0.5-1.5); BG FRACTION INSPIRED OXYGEN 36; BG HCO3 ACT 17.8 mmol/L (22.0-26.0); BG METHEMOGLOBIN 0.3 % (0.0-1.5); BG OXYHEMOGLOBIN 97.4 % (94.0-97.0); BG PH 7.364 (7.350-7.450); BG PO2 116.9 mmHg (75.0-100.0); BG SAMPLE SITE RIGHT RADIAL; BG VENT MODE NASAL CANNULA
[2017-06-22 13:43] LABS: PLATELET ESTIMATE NORMAL
[2017-06-22] MEDS: LEVOFLOXACIN 250MG PREMIX 50 ML IV SCH (14:55)
[2017-06-22] MEDS ORDERED: POTASSIUM CHLORIDE 20MEQ TABLET SR PO SCH (15:00)
[2017-06-22] MEDS ORDERED: VANCOMYCIN 1 G PREMIX 200 ML IV SCH (15:00)
[2017-06-22 16:00] VITALS: BP 119/80
[2017-06-22] MEDS ORDERED: VANCOMYCIN 1250MG in DEXTROSE 5% WATER 250ML IV SCH (16:00)
[2017-06-22] MEDS: IBUPROFEN 800MG TABLET PO PRN (18:07)
[2017-06-22] MEDS: ACETAMINOPHEN 325MG TABLET PO PRN (18:07)
[2017-06-22 20:00] VITALS: BP 88/58
[2017-06-22] MEDS: ATORVASTATIN CALCIUM 20MG TABLET PO SCH (22:49)
[2017-06-22] MEDS: DOCUSATE SODIUM 100MG CAPSULE PO SCH (22:49)
[2017-06-23] VITALS (9 sets, daily range): BP systolic 80–104; BP diastolic 54–75
[2017-06-23] MEDS ORDERED: FUROSEMIDE 40MG/4ML VIAL IVP NR (00:30)
[2017-06-23 01:44] LABS: BG BASE EXCESS -7.1 mmol/L (-2.0-2.0); BG BILEVEL POS AIRWAY PRESSURE 15/5; BG CARBOXYHEMOGLOBIN 0.3 % (0.5-1.5); BG DEOXYHEMOGLOBIN 2.1 % (0.0-5.0); BG FRACTION INSPIRED OXYGEN 50; BG HCO3 ACT 16.4 mmol/L (22.0-26.0); BG METHEMOGLOBIN 0.1 % (0.0-1.5); BG OXYGEN SATURATION 97.9 % (92.0-98.5); BG OXYHEMOGLOBIN 97.5 % (94.0-97.0); BG PCO2 26.3 mmHg (35.0-45.0); BG PH 7.413 (7.350-7.450); BG SAMPLE SITE LEFT RADIAL; BG TOTAL HEMOGLOBIN 8.8 g/dL (12.0-18.0); BG VENT MODE MASK - BIPAP
[2017-06-23] MEDS ORDERED: METOPROLOL TARTRATE 25MG TABLET PO NR (02:15)
[2017-06-23] MEDS ORDERED: VANCOMYCIN 500 MG PREMIX 100 ML IV SCH (04:00)
[2017-06-23] MEDS: IPRATROPIUM/ALBUTEROL 0.5-3(2.5)MG/3ML NEB HHN PRN ×2 (05:38→08:51)
[2017-06-23] MEDS: PIPERACILLIN/TAZ 3.375G PREMIX 50 ML IV SCH ×3 (06:03→21:13)
[2017-06-23] MEDS: BLOOD SUGAR DIAGNOSTIC STRIP TEST SCH ×4 (07:23→21:00)
[2017-06-23] MEDS: INSULIN LISPRO 100 UNITS/ML SUBCUT SCH ×4 (07:28→21:21)
[2017-06-23] MEDS: FERROUS SULFATE 325MG TABLET PO SCH ×4 (08:10→18:00)
[2017-06-23] MEDS: METOPROLOL TARTRATE 25MG TABLET PO SCH ×2 (08:23→18:00)
[2017-06-23] MEDS: FUROSEMIDE 40MG/4ML VIAL IVP SCH (09:00)
[2017-06-23] MEDS: TAMSULOSIN HCL 0.4MG SR CAPSULE PO SCH (09:00)
[2017-06-23] MEDS: ASPIRIN 81MG EC TABLET PO SCH ×2 (09:00→09:52)
[2017-06-23] MEDS: FAMOTIDINE 20MG/2ML VIAL IV SCH (09:52)
[2017-06-23] MEDS: POTASSIUM CHLORIDE 20MEQ TABLET SR PO SCH (09:53)
[2017-06-23 12:08] LABS: HEMATOCRIT. 24.3 % (42.0-52.0); MEAN CORPUSCULAR HEMOGLOBIN 29.6 pg (28.0-32.0); MEAN CORPUSCULAR VOLUME 89.5 fL (80.0-94.0); PLATELET 177 x1000/uL (130-400); RED BLOOD CELL COUNT 2.71 mill/uL (4.7-6.1); RED CELL DISTRIBUTION WIDTH 15.1 % (11.6-14.6)
[2017-06-23 12:16] LABS: VANCOMYCIN PEAK 11.9 ug/mL (25.0-40.0)
[2017-06-23] MEDS: IBUPROFEN 800MG TABLET PO PRN (12:55)
[2017-06-23] MEDS: LEVOFLOXACIN 250MG PREMIX 50 ML IV SCH (13:01)
[2017-06-23 13:57] LABS: NUCLEATED RED BLOOD CELLS 6 /100 WBC
[2017-06-23 13:58] LABS: PLATELET ESTIMATE NORMAL
[2017-06-23] MEDS ORDERED: POTASSIUM CHLORIDE 20MEQ TABLET SR PO SCH (14:15)
[2017-06-23] MEDS: VANCOMYCIN 1 G PREMIX 200 ML IV SCH (16:29)
[2017-06-23] MEDS: ATORVASTATIN CALCIUM 20MG TABLET PO SCH (21:13)
[2017-06-23] MEDS: DOCUSATE SODIUM 100MG CAPSULE PO SCH (21:13)
[2017-06-23] MEDS: SODIUM CHLORIDE 0.9% 1,000 ML IV SCH (21:21)
[2017-06-24] VITALS (12 sets, daily range): BP systolic 92–115; BP diastolic 65–80
[2017-06-24] MEDS: METOPROLOL TARTRATE 25MG TABLET PO SCH ×4 (02:00→16:38)
[2017-06-24] MEDS: PIPERACILLIN/TAZ 3.375G PREMIX 50 ML IV SCH ×3 (05:24→22:17)
[2017-06-24 05:58] LABS: HEMATOCRIT. 21.3 % (42.0-52.0); HEMOGLOBIN. 7.1 g/dL (14.0-18.0); MEAN CORPUSCULAR HEMOGLOBIN 29.9 pg (28.0-32.0); MEAN CORPUSCULAR VOLUME 89.2 fL (80.0-94.0); MEAN PLATELET VOLUME 8.1 fl (7.4-10.4); PLATELET 174 x1000/uL (130-400); RED BLOOD CELL COUNT 2.39 mill/uL (4.7-6.1); RED CELL DISTRIBUTION WIDTH 14.6 % (11.6-14.6)
[2017-06-24] MEDS: SODIUM CHLORIDE 0.9% 1,000 ML IV SCH ×2 (06:55→23:35)
[2017-06-24] MEDS: BLOOD SUGAR DIAGNOSTIC STRIP TEST SCH ×4 (07:13→20:40)
[2017-06-24] MEDS: INSULIN LISPRO 100 UNITS/ML SUBCUT SCH ×4 (07:43→20:42)
[2017-06-24] MEDS: FERROUS SULFATE 325MG TABLET PO SCH ×4 (08:00→16:38)
[2017-06-24] MEDS: POTASSIUM CHLORIDE 20MEQ TABLET SR PO SCH ×2 (08:35→09:00)
[2017-06-24] MEDS: TAMSULOSIN HCL 0.4MG SR CAPSULE PO SCH ×2 (08:35→09:00)
[2017-06-24] MEDS: FUROSEMIDE 40MG/4ML VIAL IVP SCH (08:36)
[2017-06-24] MEDS: ASPIRIN 81MG EC TABLET PO SCH ×2 (08:36→09:00)
[2017-06-24] MEDS: VANCOMYCIN 1 G PREMIX 200 ML IV SCH (08:36)
[2017-06-24] MEDS: FAMOTIDINE 20MG/2ML VIAL IV SCH (08:36)
[2017-06-24] MEDS ORDERED: POTASSIUM CHLORIDE INJ 40 MEQ in DEXT 5% WATER 250 ML IV SCH (12:00)
[2017-06-24] MEDS: LEVOFLOXACIN 250MG PREMIX 50 ML IV SCH (12:42)
[2017-06-24 12:58] LABS: BG BASE EXCESS -7.9 mmol/L (-2.0-2.0); BG BILEVEL POS AIRWAY PRESSURE ST=15/5; BG CARBOXYHEMOGLOBIN 0.3 % (0.5-1.5); BG DEOXYHEMOGLOBIN 1.1 % (0.0-5.0); BG FRACTION INSPIRED OXYGEN 50; BG HCO3 ACT 15.6 mmol/L (22.0-26.0); BG METHEMOGLOBIN 0.4 % (0.0-1.5); BG OXYGEN SATURATION 98.9 % (92.0-98.5); BG OXYHEMOGLOBIN 98.2 % (94.0-97.0); BG PCO2 24.9 mmHg (35.0-45.0); BG PH 7.415 (7.350-7.450); BG PO2 151.5 mmHg (75.0-100.0); BG PRESSURE SUPPORT 10; BG SAMPLE SITE RIGHT BRACHIAL; BG TOTAL HEMOGLOBIN 8.3 g/dL (12.0-18.0); BG VENT MODE MASK - BIPAP; BG VENT RATE 16 set
[2017-06-24 13:54] LABS: NUCLEATED RED BLOOD CELLS 5 /100 WBC
[2017-06-24 13:55] LABS: PLATELET ESTIMATE NORMAL
[2017-06-24] MEDS ORDERED: SODIUM BICARBONATE 50 MEQ in SODIUM CHLORIDE 0.45% 1,000 ML IV SCH (15:00)
[2017-06-24] MEDS: METHYLPREDNISOLONE SOD SUCC 40 MG/ML VIAL IV SCH (15:16)
[2017-06-24] MEDS: WATER IV SCH (16:45)
[2017-06-24] MEDS: SODIUM BICARBONATE IV SCH (16:45)
[2017-06-24] MEDS: DEXT 5% IV SCH (16:45)
[2017-06-24] MEDS ORDERED: POTASSIUM CHLORIDE INJ 40 MEQ in DEXT 5% WATER 250 ML IV NR (20:00)
[2017-06-24] MEDS: ATORVASTATIN CALCIUM 20MG TABLET PO SCH (20:40)
[2017-06-24] MEDS: DOCUSATE SODIUM 100MG CAPSULE PO SCH (20:40)
[2017-06-24] MEDS: IPRATROPIUM/ALBUTEROL 0.5-3(2.5)MG/3ML NEB HHN PRN (20:43)
[2017-06-25] VITALS (16 sets, daily range): BP systolic 104–126; BP diastolic 50–83
[2017-06-25] MEDS: METOPROLOL TARTRATE 25MG TABLET PO SCH ×3 (01:58→17:40)
[2017-06-25] MEDS: VANCOMYCIN 1 G PREMIX 200 ML IV SCH ×2 (04:06→20:26)
[2017-06-25] MEDS: PIPERACILLIN/TAZ 3.375G PREMIX 50 ML IV SCH ×3 (05:02→21:53)
[2017-06-25 06:12] LABS: MEAN CORPUSCULAR HEMOGLOBIN 29.8 pg (28.0-32.0); MEAN CORPUSCULAR VOLUME 87.9 fL (80.0-94.0); MEAN PLATELET VOLUME 7.9 fl (7.4-10.4); PLATELET 162 x1000/uL (130-400); RED BLOOD CELL COUNT 2.36 mill/uL (4.7-6.1); RED CELL DISTRIBUTION WIDTH 14.9 % (11.6-14.6)
[2017-06-25 06:24] LABS: HEMATOCRIT. 20.7 % (42.0-52.0)
[2017-06-25] MEDS: BLOOD SUGAR DIAGNOSTIC STRIP TEST SCH ×4 (07:38→20:29)
[2017-06-25] MEDS: FERROUS SULFATE 325MG TABLET PO SCH ×3 (08:00→17:40)
[2017-06-25] MEDS: ASPIRIN 81MG EC TABLET PO SCH (08:08)
[2017-06-25] MEDS: TAMSULOSIN HCL 0.4MG SR CAPSULE PO SCH (08:08)
[2017-06-25] MEDS: POTASSIUM CHLORIDE 20MEQ TABLET SR PO SCH (08:08)
[2017-06-25] MEDS: FAMOTIDINE 20MG/2ML VIAL IV SCH (08:19)
[2017-06-25] MEDS: INSULIN LISPRO 100 UNITS/ML SUBCUT SCH ×4 (08:19→20:34)
[2017-06-25] MEDS: METHYLPREDNISOLONE SOD SUCC 40 MG/ML VIAL IV SCH (08:19)
[2017-06-25] MEDS: FUROSEMIDE 40MG/4ML VIAL IVP SCH (08:19)
[2017-06-25] MEDS: SODIUM BICARBONATE IV SCH ×2 (10:30→16:17)
[2017-06-25] MEDS: WATER IV SCH ×2 (10:30→16:17)
[2017-06-25] MEDS: DEXT 5% IV SCH ×2 (10:30→16:17)
[2017-06-25 12:11] LABS: NUCLEATED RED BLOOD CELLS 2 /100 WBC; PLATELET ESTIMATE NORMAL
[2017-06-25] MEDS: LEVOFLOXACIN 250MG PREMIX 50 ML IV SCH (14:24)
[2017-06-25] MEDS: PANTOPRAZOLE SODIUM 40 MG/VIAL IV SCH (20:29)
[2017-06-25] MEDS: ATORVASTATIN CALCIUM 20MG TABLET PO SCH (20:29)
[2017-06-25] MEDS: DOCUSATE SODIUM 100MG CAPSULE PO SCH (20:29)
[2017-06-26] VITALS (13 sets, daily range): BP systolic 100–130; BP diastolic 58–89
[2017-06-26] MEDS: METOPROLOL TARTRATE 25MG TABLET PO SCH ×3 (02:00→18:00)
[2017-06-26 02:14] LABS: HEMATOCRIT 28.1 % (42.0-52.0); HEMOGLOBIN 9.3 g/dL (14.0-18.0)
[2017-06-26] MEDS: SODIUM BICARBONATE IV SCH (04:00)
[2017-06-26] MEDS: WATER IV SCH (04:00)
[2017-06-26] MEDS: DEXT 5% IV SCH (04:00)
[2017-06-26 04:54] LABS: HEMATOCRIT. 26.2 % (42.0-52.0); HEMOGLOBIN. 8.7 g/dL (14.0-18.0); MEAN CORPUSCULAR HEMOGLOBIN 29.2 pg (28.0-32.0); MEAN CORPUSCULAR VOLUME 88.3 fL (80.0-94.0); MEAN PLATELET VOLUME 7.7 fl (7.4-10.4); PLATELET 156 x1000/uL (130-400); RED BLOOD CELL COUNT 2.96 mill/uL (4.7-6.1)
[2017-06-26 05:02] LABS: INR 1.3; PARTIAL THROMBOPLASTIN TIME 25.9 sec (23.4-31.0); PROTHROMBIN TIME 13.6 sec (9.4-11.6)
[2017-06-26] MEDS: PIPERACILLIN/TAZ 3.375G PREMIX 50 ML IV SCH ×3 (05:33→21:55)
[2017-06-26 06:35] LABS: AMMONIA 41 uMol/L (<32)
[2017-06-26 07:05] LABS: CARBON DIOXIDE 23 mEq/L (21-32); CHLORIDE 106 mEq/L (98-107); TOTAL IRON BINDING CAPACITY 201 ug/dL (250-450)
[2017-06-26] MEDS: BLOOD SUGAR DIAGNOSTIC STRIP TEST SCH ×4 (07:30→21:55)
[2017-06-26] MEDS: PANTOPRAZOLE SODIUM 40 MG/VIAL IV SCH ×2 (08:07→21:55)
[2017-06-26] MEDS: FUROSEMIDE 40MG/4ML VIAL IVP SCH (08:07)
[2017-06-26] MEDS: FERROUS SULFATE 325MG TABLET PO SCH ×3 (08:08→18:00)
[2017-06-26] MEDS: TAMSULOSIN HCL 0.4MG SR CAPSULE PO SCH (08:08)
[2017-06-26] MEDS: POTASSIUM CHLORIDE 20MEQ TABLET SR PO SCH (08:08)
[2017-06-26] MEDS: INSULIN LISPRO 100 UNITS/ML SUBCUT SCH ×4 (08:18→21:59)
[2017-06-26] MEDS: METHYLPREDNISOLONE SOD SUCC 40 MG/ML VIAL IV SCH (08:31)
[2017-06-26] MEDS ORDERED: MIDAZOLAM HCL 5 MG/5 ML VIAL ONE (11:34)
[2017-06-26] MEDS ORDERED: FENTANYL CITRATE/PF 50MCG/ML 2ML VIAL ONE (11:34)
[2017-06-26 13:35] LABS: CARBON DIOXIDE 26 mEq/L (21-32); CHLORIDE 104 mEq/L (98-107); VANCOMYCIN TROUGH 19.6 ug/mL (5.0-10.0)
[2017-06-26] MEDS: SODIUM CHLORIDE 0.9% 1,000 ML IV SCH (13:41)
[2017-06-26] MEDS ORDERED: SODIUM CHLORIDE 0.9% 10ML VIAL ONE (14:01)
[2017-06-26] MEDS ORDERED: SIMETHICONE 40 MG/0.6 ML 30ML ONE (14:01)
[2017-06-26] MEDS: VANCOMYCIN 1 G PREMIX 200 ML IV SCH (15:42)
[2017-06-26] MEDS: LEVOFLOXACIN 250MG PREMIX 50 ML IV SCH (15:42)
[2017-06-26] MEDS ORDERED: POTASSIUM CHLORIDE INJ 40 MEQ in DEXT 5% WATER 250 ML IV NR ×2 (17:00→21:00)
[2017-06-26 17:59] LABS: NUCLEATED RED BLOOD CELLS 1 /100 WBC
[2017-06-26 18:00] LABS: PLATELET ESTIMATE NORMAL
[2017-06-26] MEDS: ATORVASTATIN CALCIUM 20MG TABLET PO SCH (21:55)
[2017-06-26] MEDS: DOCUSATE SODIUM 100MG CAPSULE PO SCH (21:55)
[2017-06-26 23:56] LABS: CARBON DIOXIDE 26 mEq/L (21-32); CHLORIDE 107 mEq/L (98-107)
[2017-06-27] VITALS (29 sets, daily range): BP systolic 90–139; BP diastolic 53–89
[2017-06-27] MEDS: METOPROLOL TARTRATE 25MG TABLET PO SCH ×3 (02:09→18:00)
[2017-06-27] MEDS: METOCLOPRAMIDE HCL 10MG/2ML VIAL IV SCH ×3 (05:32→17:01)
[2017-06-27] MEDS: PIPERACILLIN/TAZ 3.375G PREMIX 50 ML IV SCH ×3 (05:32→21:19)
[2017-06-27] MEDS ORDERED: LORAZEPAM 2MG/ML CPJ IV NR (06:00)
[2017-06-27] MEDS: SODIUM CHLORIDE 0.9% 1,000 ML IV SCH (06:17)
[2017-06-27 06:26] LABS: CARBON DIOXIDE 26 mEq/L (21-32); CHLORIDE 108 mEq/L (98-107)
[2017-06-27 06:34] LABS: CARBON DIOXIDE 25 mEq/L (21-32); CHLORIDE 109 mEq/L (98-107)
[2017-06-27 06:37] LABS: HEMATOCRIT. 25.9 % (42.0-52.0); HEMOGLOBIN. 8.8 g/dL (14.0-18.0); MEAN CORPUSCULAR HEMOGLOBIN 29.7 pg (28.0-32.0); MEAN CORPUSCULAR VOLUME 87.4 fL (80.0-94.0); PLATELET 139 x1000/uL (130-400); RED BLOOD CELL COUNT 2.96 mill/uL (4.7-6.1); RED CELL DISTRIBUTION WIDTH 15.2 % (11.6-14.6)
[2017-06-27 06:43] LABS: T4 FREE 1.09 ng/dL (0.76-1.46)
[2017-06-27 07:28] LABS: FOLIC ACID (FOLATE) SERUM > 20.00 ng/mL (>5.38); VITAMIN B12 SERUM > 2000.0 pg/mL (211-911)
[2017-06-27] MEDS: BLOOD SUGAR DIAGNOSTIC STRIP TEST SCH ×4 (07:30→21:19)
[2017-06-27] MEDS: FERROUS SULFATE 325MG TABLET PO SCH ×3 (08:00→17:01)
[2017-06-27] MEDS: INSULIN LISPRO 100 UNITS/ML SUBCUT SCH ×4 (08:00→21:21)
[2017-06-27] MEDS: METHYLPREDNISOLONE SOD SUCC 40 MG/ML VIAL IV SCH (08:07)
[2017-06-27] MEDS: PANTOPRAZOLE SODIUM 40 MG/VIAL IV SCH ×2 (08:08→21:19)
[2017-06-27] MEDS: VANCOMYCIN 1 G PREMIX 200 ML IV SCH (08:08)
[2017-06-27] MEDS: POTASSIUM CHLORIDE 20MEQ TABLET SR PO SCH (08:09)
[2017-06-27] MEDS: TAMSULOSIN HCL 0.4MG SR CAPSULE PO SCH (08:09)
[2017-06-27 10:26] LABS: BG BASE EXCESS 1.1 mmol/L (-2.0-2.0); BG BILEVEL POS AIRWAY PRESSURE 15/5; BG CARBOXYHEMOGLOBIN 0.3 % (0.5-1.5); BG DEOXYHEMOGLOBIN 3.5 % (0.0-5.0); BG FRACTION INSPIRED OXYGEN 35; BG HCO3 ACT 24.3 mmol/L (22.0-26.0); BG METHEMOGLOBIN 0.5 % (0.0-1.5); BG OXYGEN SATURATION 96.5 % (92.0-98.5); BG OXYHEMOGLOBIN 95.7 % (94.0-97.0); BG PCO2 33.2 mmHg (35.0-45.0); BG PH 7.482 (7.350-7.450); BG PO2 91.3 mmHg (75.0-100.0); BG SAMPLE SITE RIGHT RADIAL; BG TOTAL HEMOGLOBIN 9.6 g/dL (12.0-18.0); BG VENT MODE MASK - BIPAP; BG VENT RATE 16 set
[2017-06-27] MEDS ORDERED: POTASSIUM CHLORIDE INJ 40 MEQ in DEXT 5% WATER 250 ML IV NR (11:00)
[2017-06-27] MEDS ORDERED: MAGNESIUM 2 G PREMIX 50 ML IV NR (12:00)
[2017-06-27] MEDS: IPRATROPIUM/ALBUTEROL 0.5-3(2.5)MG/3ML NEB HHN PRN (12:55)
[2017-06-27] MEDS: LEVOFLOXACIN 250MG PREMIX 50 ML IV SCH (13:06)
[2017-06-27] MEDS: FUROSEMIDE 40MG/4ML VIAL IVP SCH (13:06)
[2017-06-27] MEDS ORDERED: SODIUM PHOS,M-BASIC-D-BASIC 10 MM in DEXT 5% WATER 246.6667 ML IV NR (14:00)
[2017-06-27 14:18] LABS: PLATELET ESTIMATE NORMAL
[2017-06-27] MEDS: ATORVASTATIN CALCIUM 20MG TABLET PO SCH (21:19)
[2017-06-27] MEDS: DOCUSATE SODIUM 100MG CAPSULE PO SCH (21:19)
[2017-06-28] VITALS (19 sets, daily range): BP systolic 92–139; BP diastolic 46–112
[2017-06-28] MEDS: SODIUM CHLORIDE 0.9% 1,000 ML IV SCH ×2 (00:18→20:45)
[2017-06-28] MEDS: METOCLOPRAMIDE HCL 10MG/2ML VIAL IV SCH ×4 (00:18→17:43)
[2017-06-28] MEDS: METOPROLOL TARTRATE 25MG TABLET PO SCH ×3 (02:00→17:35)
[2017-06-28] MEDS: VANCOMYCIN 1 G PREMIX 200 ML IV SCH ×2 (02:24→20:36)
[2017-06-28 04:53] LABS: HEMATOCRIT. 25.6 % (42.0-52.0); HEMOGLOBIN. 8.6 g/dL (14.0-18.0); MEAN CORPUSCULAR HEMOGLOBIN 29.4 pg (28.0-32.0); MEAN PLATELET VOLUME 7.7 fl (7.4-10.4); PLATELET 135 x1000/uL (130-400); RED BLOOD CELL COUNT 2.91 mill/uL (4.7-6.1); RED CELL DISTRIBUTION WIDTH 15.3 % (11.6-14.6)
[2017-06-28 05:11] LABS: CARBON DIOXIDE 27 mEq/L (21-32); CHLORIDE 108 mEq/L (98-107)
[2017-06-28] MEDS: BLOOD SUGAR DIAGNOSTIC STRIP TEST SCH ×4 (05:54→20:36)
[2017-06-28] MEDS: PIPERACILLIN/TAZ 3.375G PREMIX 50 ML IV SCH ×3 (05:59→22:44)
[2017-06-28] MEDS: FERROUS SULFATE 325MG TABLET PO SCH ×3 (06:00→17:43)
[2017-06-28] MEDS: INSULIN LISPRO 100 UNITS/ML SUBCUT SCH ×4 (06:00→21:15)
[2017-06-28] MEDS ORDERED: POTASSIUM CHLORIDE INJ 40 MEQ in DEXT 5%/0.9% NACL 1,000 ML IV ONE (08:00)
[2017-06-28] MEDS: TAMSULOSIN HCL 0.4MG SR CAPSULE PO SCH ×2 (09:00→09:35)
[2017-06-28] MEDS: FUROSEMIDE 40MG/4ML VIAL IVP SCH (09:35)
[2017-06-28] MEDS: METHYLPREDNISOLONE SOD SUCC 40 MG/ML VIAL IV SCH (09:35)
[2017-06-28] MEDS: POTASSIUM CHLORIDE 20MEQ TABLET SR PO SCH (09:35)
[2017-06-28] MEDS: PANTOPRAZOLE SODIUM 40 MG/VIAL IV SCH ×2 (09:35→20:35)
[2017-06-28 09:53] LABS: PHOSPHORUS 2.1 mg/dL (2.5-4.9)
[2017-06-28] MEDS ORDERED: POTASSIUM CHLORIDE INJ 40 MEQ in DEXT 5% WATER 250 ML IV NR (10:00)
[2017-06-28 10:17] LABS: PLATELET ESTIMATE NORMAL
[2017-06-28] MEDS ORDERED: POTASSIUM PHOS,M-BASIC-D-BASIC 30 MMOL in DEXT 5% WATER 500 ML IV NR (13:30)
[2017-06-28] MEDS: LEVOFLOXACIN 250MG PREMIX 50 ML IV SCH (15:15)
[2017-06-28] MEDS ORDERED: POTASSIUM CHLORIDE 10MEQ TABLET SR PO SCH ×2 (18:30)
[2017-06-28] MEDS: ATORVASTATIN CALCIUM 20MG TABLET PO SCH (20:36)
[2017-06-28] MEDS: DOCUSATE SODIUM 100MG CAPSULE PO SCH (20:36)
[2017-06-28] MEDS: SUCRALFATE 1 G/10 ML UDC PO SCH (20:36)
[2017-06-28] MEDS: ACETAMINOPHEN 325MG TABLET PO PRN (20:55)
[2017-06-28] MEDS: ONDANSETRON HCL 4MG/2ML VIAL IV PRN (23:35)
[2017-06-29] VITALS: BP 104/72
[2017-06-29] MEDS: IPRATROPIUM/ALBUTEROL 0.5-3(2.5)MG/3ML NEB HHN PRN (00:34)
[2017-06-29] MEDS: METOCLOPRAMIDE HCL 10MG/2ML VIAL IV SCH ×4 (00:37→17:57)
[2017-06-29] MEDS: METOPROLOL TARTRATE 25MG TABLET PO SCH ×3 (02:00→17:52)
[2017-06-29 04:00] VITALS: BP 97/60
[2017-06-29 06:10] LABS: HEMATOCRIT. 26.7 % (42.0-52.0); HEMOGLOBIN. 8.9 g/dL (14.0-18.0); MEAN CORPUSCULAR HEMOGLOBIN 29.6 pg (28.0-32.0); MEAN CORPUSCULAR VOLUME 88.8 fL (80.0-94.0); MEAN PLATELET VOLUME 7.6 fl (7.4-10.4); PLATELET 147 x1000/uL (130-400); RED BLOOD CELL COUNT 3.01 mill/uL (4.7-6.1); RED CELL DISTRIBUTION WIDTH 15.4 % (11.6-14.6)
[2017-06-29] MEDS: SUCRALFATE 1 G/10 ML UDC PO SCH ×4 (06:18→21:21)
[2017-06-29] MEDS: FERROUS SULFATE 325MG TABLET PO SCH ×3 (06:19→17:57)
[2017-06-29] MEDS: PIPERACILLIN/TAZ 3.375G PREMIX 50 ML IV SCH ×3 (06:19→21:21)
[2017-06-29] MEDS: BLOOD SUGAR DIAGNOSTIC STRIP TEST SCH ×4 (06:21→21:19)
[2017-06-29] MEDS: INSULIN LISPRO 100 UNITS/ML SUBCUT SCH ×4 (06:38→21:00)
[2017-06-29 06:54] LABS: CARBON DIOXIDE 27 mEq/L (21-32); CHLORIDE 103 mEq/L (98-107)
[2017-06-29 08:00] VITALS: BP 116/70
[2017-06-29] MEDS: FUROSEMIDE 40MG/4ML VIAL IVP SCH (09:27)
[2017-06-29] MEDS: TAMSULOSIN HCL 0.4MG SR CAPSULE PO SCH (09:27)
[2017-06-29] MEDS: PANTOPRAZOLE SODIUM 40 MG/VIAL IV SCH ×2 (09:27→21:21)
[2017-06-29] MEDS: POTASSIUM CHLORIDE 20MEQ TABLET SR PO SCH (09:28)
[2017-06-29] MEDS: SODIUM CHLORIDE 0.9% 1,000 ML IV SCH (11:53)
[2017-06-29] MEDS: METHYLPREDNISOLONE SOD SUCC 40 MG/ML VIAL IV SCH (11:55)
[2017-06-29 12:00] VITALS: BP 94/61
[2017-06-29] MEDS: LEVOFLOXACIN 250MG PREMIX 50 ML IV SCH (12:11)
[2017-06-29] MEDS: VANCOMYCIN 1 G PREMIX 200 ML IV SCH (15:56)
[2017-06-29 16:00] VITALS: BP 99/69
[2017-06-29 16:24] LABS: PLATELET ESTIMATE NORMAL
[2017-06-29 20:00] VITALS: BP 111/75
[2017-06-29] MEDS: ATORVASTATIN CALCIUM 20MG TABLET PO SCH (21:21)
[2017-06-29] MEDS: DOCUSATE SODIUM 100MG CAPSULE PO SCH (21:21)
[2017-06-30] VITALS (7 sets, daily range): BP systolic 99–121; BP diastolic 64–83
[2017-06-30] MEDS: METOCLOPRAMIDE HCL 10MG/2ML VIAL IV SCH ×4 (00:32→17:46)
[2017-06-30] MEDS: METOPROLOL TARTRATE 25MG TABLET PO SCH ×3 (02:00→17:48)
[2017-06-30] MEDS: SUCRALFATE 1 G/10 ML UDC PO SCH ×4 (05:39→21:00)
[2017-06-30] MEDS: PIPERACILLIN/TAZ 3.375G PREMIX 50 ML IV SCH ×3 (05:40→22:00)
[2017-06-30] MEDS: SODIUM CHLORIDE 0.9% 1,000 ML IV SCH ×2 (05:45→17:48)
[2017-06-30] MEDS: BLOOD SUGAR DIAGNOSTIC STRIP TEST SCH ×4 (05:57→21:00)
[2017-06-30] MEDS: INSULIN LISPRO 100 UNITS/ML SUBCUT SCH ×4 (05:57→21:00)
[2017-06-30] MEDS: POTASSIUM CHLORIDE 20MEQ TABLET SR PO SCH (08:13)
[2017-06-30] MEDS: FERROUS SULFATE 325MG TABLET PO SCH ×3 (08:13→17:46)
[2017-06-30] MEDS: PANTOPRAZOLE SODIUM 40 MG/VIAL IV SCH ×2 (08:14→21:00)
[2017-06-30] MEDS: FUROSEMIDE 40MG/4ML VIAL IVP SCH (08:14)
[2017-06-30] MEDS: METHYLPREDNISOLONE SOD SUCC 40 MG/ML VIAL IV SCH (08:14)
[2017-06-30] MEDS: TAMSULOSIN HCL 0.4MG SR CAPSULE PO SCH (08:14)
[2017-06-30] MEDS: ACETAMINOPHEN 325MG TABLET PO PRN (12:25)
[2017-06-30] MEDS: LEVOFLOXACIN 250MG PREMIX 50 ML IV SCH (12:31)
[2017-06-30] MEDS: IBUPROFEN 800MG TABLET PO PRN (12:37)
[2017-06-30] MEDS: ATORVASTATIN CALCIUM 20MG TABLET PO SCH (21:00)
[2017-06-30] MEDS: DOCUSATE SODIUM 100MG CAPSULE PO SCH (21:00)
== END 2017-06-30 23:35 | DRG 853 ==
LOC: ER 13:21 → 7WST 16:57 → EDBEDREQ 17:39 → EDBEDREQTM 17:39 → ENRESERV 19:05 → 5EST 06-23 10:28 → MICUNO 06-27 09:40 → 5WST 06-28 12:15
PROVIDERS: ADMIT Internal Medicine; ATTEND Internal Medicine
PROC: 5A09457 Assistance with Respiratory Ventilation, 24-96 Consecutive Hours, Continuous Positive Airway Pressure (ICD-10-PCS; principal; 2017-06-23)
PROC: 30233N1 Transfusion of Nonautologous Red Blood Cells into Peripheral Vein, Percutaneous Approach (ICD-10-PCS; 2017-06-25)
PROC: 0D968ZZ Drainage of Stomach, Via Natural or Artificial Opening Endoscopic (ICD-10-PCS; 2017-06-26)
PROC: 0D958ZZ Drainage of Esophagus, Via Natural or Artificial Opening Endoscopic (ICD-10-PCS; 2017-06-26)
PROC: 0DB98ZX Excision of Duodenum, Via Natural or Artificial Opening Endoscopic, Diagnostic (ICD-10-PCS; 2017-06-26)
PROC: 0DB68ZX Excision of Stomach, Via Natural or Artificial Opening Endoscopic, Diagnostic (ICD-10-PCS; 2017-06-26)
PROC: 0DB58ZX Excision of Esophagus, Via Natural or Artificial Opening Endoscopic, Diagnostic (ICD-10-PCS; 2017-06-26)
DX: A41.9 Sepsis, unspecified organism (principal); J69.0 Pneumonitis due to inhalation of food and vomit; J96.00 Acute respiratory failure, unspecified whether with hypoxia or hypercapnia; G93.41 Metabolic encephalopathy; I95.9 Hypotension, unspecified; K22.10 Ulcer of esophagus without bleeding; N39.0 Urinary tract infection, site not specified; K92.1 Melena; E87.1 Hypo-osmolality and hyponatremia; I50.9 Heart failure, unspecified; I11.0 Hypertensive heart disease with heart failure; I48.2 Chronic atrial fibrillation; K29.70 Gastritis, unspecified, without bleeding; E11.9 Type 2 diabetes mellitus without complications; K31.89 Other diseases of stomach and duodenum; K22.8 Other specified diseases of esophagus; D64.9 Anemia, unspecified; F03.90 Unspecified dementia, unspecified severity, without behavioral disturbance, psychotic disturbance, mood disturbance, and anxiety; E87.6 Hypokalemia; I25.10 Atherosclerotic heart disease of native coronary artery without angina pectoris; R62.7 Adult failure to thrive; Z66 Do not resuscitate; Z95.1 Presence of aortocoronary bypass graft
CPT/HCPCS: 36415; 36600; 71010; 74000; 80048; 80053; 80202; 81001; 82140; 82270; 82375; 82607; 82728; 82746; 82805; 82962; 83540; 83550; 83605; 83735; 83880; 84100; 84439; 84443; 84466; 84484; 85007; 85014; 85018; 85025; 85027; 85044; 85610; 85730; 86850; 86900; 86920; 87040; 87077; 87086; 87186; 88305; 88312; 88313; 92610; 93005; 94640; 94660; 94664; 96361; 96365; 96375; 99152; 99153; 99291; A4216; A6261; C9113; J1650; J1815; J1940; J1956; J2060; J2250; J2405; J2543; J2765; J2920; J3010; J3370; J3475; J3480; J3490; J7030; J7050; J7060; J7620; P9016; A4315